=== PATIENT | female | born 1955 | race Caucasian/White ===

== ENCOUNTER 2017-03-08 09:47 | Inpatient (IN) | payer OTHER, MEDICAID, SELFPAY | END 2017-03-11 10:20 | disposition home or self-care (01) | DRG 192 | PROVIDERS: Admitting Provider Internal Medicine Adolescent Medicine; Emergency Provider Emergency Medicine; Family Provider Family Medicine; Visit Provider Family Medicine | DX: J44.1 Chronic obstructive pulmonary disease with (acute) exacerbation (principal); J20.9 Acute bronchitis, unspecified; J44.0 Chronic obstructive pulmonary disease with (acute) lower respiratory infection | CPT/HCPCS: 36415; 71020; 80048; 80053; 82550; 82553; 83605; 84484; 85025; 87040; 87070; 87205; 87275; 87276; 93005; 93041; 94640; 94760; 96365; 96367; 96375; 99285; J1956 ==

== ENCOUNTER → 2017-04-10 09:25 | Outpatient (CLI) | payer MEDICAID, SELFPAY ==
--- NOTE | 2017-04-10 09:29 | XR_ITS ---
XR hip LT 2-3V w/pelvis HISTORY: Follow-up surgery/replacement ITS.REASON: 1 year follow up LEFT MEIR. ORDERING PHYSICIAN: Manuelito Orellana MD PATIENT AGE: 61 years COMPARISON: 05/09/2016 FINDINGS: Status post total left hip replacement without evidence of orthopedic complication. There is good alignment. There are severe osteoarthritic changes of the right hip not significant change. No fracture or dislocation. There is mild osteoarthritic change of the right SI joint inferiorly IMPRESSION: 1. Status post total left hip replacement unchanged with no acute finding. 2. Severe osteoarthritis of the right hip
== END ==
PROVIDERS: PCP Family Medicine; Visit Provider Orthopaedic Surgery
DX: Z48.89 Encounter for other specified surgical aftercare (principal); Z96.642 Presence of left artificial hip joint
CPT/HCPCS: 73502

== ENCOUNTER → 2017-04-28 14:16 | Outpatient (CLI) | payer MEDICAID, SELFPAY ==
[2017-04-28 15:06] LABS: Basophils # 0.1 K/mm3 (0-0.2); Basophils % 0.5 % (0.1-2.0); Eosinophils # 0.2 K/mm3 (0.0-0.4); Hematocrit 50.5 % (37.0-47.0); Hemoglobin 16.3 g/dL (12.2-16.2); Lymphocytes # 2.8 K/mm3 (0.7-4.5); Lymphocytes % 24.6 K/mm3 (10-50); Mean Corpuscular HGB Conc 32.3 g/dL (31.8-35.4); Mean Corpuscular Hemoglobin 30.4 pg (27.0-31.2); Mean Corpuscular Volume 94.2 fl (81-99); Mean Platelet Volume 7.3 fl (7.4-10.4); Monocytes # 0.6 K/mm3 (0.1-1.0); Monocytes % 5.7 % (1.7-9.3); Neutrophils # 7.6 K/mm3 (1.8-7.8); Neutrophils % 67.3 % (37.0-80.0); Platelet Count 331 K/mm3 (142-424); Red Blood Count 5.37 M/mm3 (4.20-5.40); Red Cell Distribution Width 14.1 % (11.5-17.5); White Blood Count 11.3 K/mm3 (4.8-10.8)
[2017-04-28 15:43] LABS: HCG Qualitative, Serum Negative (Negative)
[2017-04-28 16:00] LABS: Alanine Aminotransferase 34 U/L (12-78); Albumin Level 3.4 gm/dL (3.4-5.0); Alkaline Phosphatase 101 U/L (46-116); Bilirubin,Total 0.3 mg/dL (0.2-1.0); Creatinine,Serum 0.72 mg/dL (0.55-1.02); Estimated Glomerular Filt Rate 82 ml/min (>60); GFR (African American) 99 ML/MIN (>60)
[2017-04-28 16:12] LABS: Aspartate Amino Transferase 19 U/L (15-37); Bilirubin,Direct 0.1 mg/dL (0.0-0.2)
[2017-04-28 16:14] LABS: Blood Urea Nitrogen 8 mg/dL (7-18)
[2017-05-02 12:02] LABS: Hep B Surface Ab, Qual Non Reactive (.); Hepatitis B Surface Antigen Negative (Negative); Hepatitis C Antibody <0.1 s/co ratio (0.0-0.9)
== END ==
PROVIDERS: PCP Family Medicine; Visit Provider Dermatology Dermatopathology
DX: L40.0 Psoriasis vulgaris (principal)
CPT/HCPCS: 36415; 80076; 82565; 84520; 84703; 85025; 86480; 86706; 87340; 87380

== ENCOUNTER → 2017-05-08 09:13 | Outpatient (CLI) | payer MEDICAID, SELFPAY ==
[2017-05-09 08:15] LABS: HIV Screen 4th Generation wRfx Non Reactive (Non Reactive)
== END ==
PROVIDERS: Visit Provider Dermatology Dermatopathology
DX: Z79.899 Other long term (current) drug therapy (principal); L40.0 Psoriasis vulgaris
CPT/HCPCS: 36415; 86703; G0432

== ENCOUNTER → 2017-05-29 09:02 | Outpatient (CLI) | payer MEDICAID, SELFPAY ==
[2017-05-29 09:27] LABS: Basophils # 0.1 K/mm3 (0-0.2); Basophils % 0.6 % (0.1-2.0); Eosinophils # 0.1 K/mm3 (0.0-0.4); Eosinophils % 1.3 % (0.1-12.0); Hematocrit 51.1 % (37.0-47.0); Hemoglobin 16.1 g/dL (12.2-16.2); Lymphocytes # 2.6 K/mm3 (0.7-4.5); Mean Corpuscular HGB Conc 31.4 g/dL (31.8-35.4); Mean Corpuscular Hemoglobin 30.3 pg (27.0-31.2); Mean Corpuscular Volume 96.4 fl (81-99); Mean Platelet Volume 7.1 fl (7.4-10.4); Monocytes # 0.6 K/mm3 (0.1-1.0); Monocytes % 6.2 % (1.7-9.3); Neutrophils # 5.9 K/mm3 (1.8-7.8); Neutrophils % 63.9 % (37.0-80.0); Platelet Count 360 K/mm3 (142-424); Red Cell Distribution Width 14.1 % (11.5-17.5); White Blood Count 9.3 K/mm3 (4.8-10.8)
[2017-05-29 10:40] LABS: Alanine Aminotransferase 51 U/L (12-78); Albumin Level 3.7 gm/dL (3.4-5.0); Alkaline Phosphatase 99 U/L (46-116); Aspartate Amino Transferase 24 U/L (15-37); Bilirubin,Direct 0.1 mg/dL (0.0-0.2); Bilirubin,Total 0.2 mg/dL (0.2-1.0); Blood Urea Nitrogen 13 mg/dL (7-18); Creatinine,Serum 0.94 mg/dL (0.55-1.02); Estimated Glomerular Filt Rate 60 ml/min (>60); GFR (African American) 73 ML/MIN (>60); Total Protein,Serum 7.2 gm/dL (6.4-8.2)
[2017-05-29 10:45] LABS: HCG,Quantitative 2 mIU/mL
== END ==
PROVIDERS: Visit Provider Dermatology Dermatopathology
DX: L40.0 Psoriasis vulgaris (principal); Z79.899 Other long term (current) drug therapy
CPT/HCPCS: 36415; 80076; 82565; 84520; 84702; 85025

== ENCOUNTER → 2017-06-12 08:36 | Outpatient (CLI) | payer MEDICAID, SELFPAY ==
[2017-06-12 08:49] LABS: Basophils # 0.1 K/mm3 (0-0.2); Basophils % 0.4 % (0.1-2.0); Eosinophils # 0.2 K/mm3 (0.0-0.4); Eosinophils % 1.5 % (0.1-12.0); Hematocrit 51.3 % (37.0-47.0); Hemoglobin 16.2 g/dL (12.2-16.2); Lymphocytes # 3.1 K/mm3 (0.7-4.5); Lymphocytes % 25.2 K/mm3 (10-50); Mean Corpuscular HGB Conc 31.6 g/dL (31.8-35.4); Mean Corpuscular Hemoglobin 30.9 pg (27.0-31.2); Mean Corpuscular Volume 97.6 fl (81-99); Monocytes # 0.7 K/mm3 (0.1-1.0); Monocytes % 5.9 % (1.7-9.3); Neutrophils # 8.3 K/mm3 (1.8-7.8); Neutrophils % 67.1 % (37.0-80.0); Platelet Count 376 K/mm3 (142-424); Red Blood Count 5.26 M/mm3 (4.20-5.40); Red Cell Distribution Width 14.3 % (11.5-17.5); White Blood Count 12.4 K/mm3 (4.8-10.8)
[2017-06-12 10:28] LABS: Alanine Aminotransferase 43 U/L (12-78); Albumin Level 3.6 gm/dL (3.4-5.0); Alkaline Phosphatase 101 U/L (46-116); Bilirubin,Direct 0.1 mg/dL (0.0-0.2); Bilirubin,Total 0.3 mg/dL (0.2-1.0); Blood Urea Nitrogen 12 mg/dL (7-18); Creatinine,Serum 0.79 mg/dL (0.55-1.02); Estimated Glomerular Filt Rate 73 ml/min (>60); GFR (African American) 89 ML/MIN (>60); Total Protein,Serum 7.2 gm/dL (6.4-8.2)
[2017-06-12 10:29] LABS: Aspartate Amino Transferase 23 U/L (15-37)
== END ==
PROVIDERS: Visit Provider Dermatology Dermatopathology
DX: L40.0 Psoriasis vulgaris (principal)
CPT/HCPCS: 36415; 80076; 82565; 84520; 85025

== ENCOUNTER → 2017-07-18 08:35 | Outpatient (CLI) | payer MEDICAID, SELFPAY ==
[2017-07-18 09:23] LABS: Basophils # 0.1 K/mm3 (0-0.2); Basophils % 0.6 % (0.1-2.0); Eosinophils # 0.1 K/mm3 (0.0-0.4); Eosinophils % 1.5 % (0.1-12.0); Hematocrit 47.8 % (37.0-47.0); Hemoglobin 15.3 g/dL (12.2-16.2); Lymphocytes # 2.6 K/mm3 (0.7-4.5); Mean Corpuscular HGB Conc 32.1 g/dL (31.8-35.4); Mean Corpuscular Hemoglobin 31.3 pg (27.0-31.2); Mean Corpuscular Volume 97.5 fl (81-99); Mean Platelet Volume 7.3 fl (7.4-10.4); Monocytes # 0.6 K/mm3 (0.1-1.0); Monocytes % 6.4 % (1.7-9.3); Neutrophils # 5.4 K/mm3 (1.8-7.8); Neutrophils % 61.5 % (37.0-80.0); Platelet Count 348 K/mm3 (142-424); Red Blood Count 4.91 M/mm3 (4.20-5.40); Red Cell Distribution Width 14.4 % (11.5-17.5); White Blood Count 8.8 K/mm3 (4.8-10.8)
[2017-07-18 11:51] LABS: Alanine Aminotransferase 78 U/L (12-78); Albumin Level 3.7 gm/dL (3.4-5.0); Alkaline Phosphatase 112 U/L (46-116); Aspartate Amino Transferase 36 U/L (15-37); Bilirubin,Direct 0.1 mg/dL (0.0-0.2); Bilirubin,Indirect 0.1 mg/dL (0.0-0.9); Bilirubin,Total 0.2 mg/dL (0.2-1.0); Blood Urea Nitrogen 12 mg/dL (7-18); Creatinine,Serum 0.71 mg/dL (0.55-1.02); Estimated Glomerular Filt Rate 83 ml/min (>60); GFR (African American) 100 ML/MIN (>60); Total Protein,Serum 7.1 gm/dL (6.4-8.2)
== END ==
PROVIDERS: Visit Provider Dermatology Dermatopathology
DX: L40.0 Psoriasis vulgaris (principal); Z79.899 Other long term (current) drug therapy
CPT/HCPCS: 36415; 80076; 82565; 84520; 85025

== ENCOUNTER → 2017-09-26 09:39 | Outpatient (CLI) | payer MEDICAID, SELFPAY ==
[2017-09-26 09:59] LABS: Basophils # 0.1 K/mm3 (0-0.2); Basophils % 0.6 % (0.1-2.0); Eosinophils # 0.2 K/mm3 (0.0-0.4); Eosinophils % 2.4 % (0.1-12.0); Hematocrit 51.5 % (37.0-47.0); Hemoglobin 15.7 g/dL (12.2-16.2); Lymphocytes # 2.6 K/mm3 (0.7-4.5); Mean Corpuscular HGB Conc 30.5 g/dL (31.8-35.4); Mean Corpuscular Hemoglobin 30.1 pg (27.0-31.2); Mean Corpuscular Volume 98.6 fl (81-99); Mean Platelet Volume 6.9 fl (7.4-10.4); Monocytes # 0.5 K/mm3 (0.1-1.0); Monocytes % 5.8 % (1.7-9.3); Neutrophils # 4.4 K/mm3 (1.8-7.8); Neutrophils % 57.2 % (37.0-80.0); Platelet Count 357 K/mm3 (142-424); Red Blood Count 5.22 M/mm3 (4.20-5.40); Red Cell Distribution Width 13.9 % (11.5-17.5); White Blood Count 7.8 K/mm3 (4.8-10.8)
[2017-09-26 10:51] LABS: Alanine Aminotransferase 83 U/L (12-78); Albumin Level 3.6 gm/dL (3.4-5.0); Alkaline Phosphatase 109 U/L (46-116); Aspartate Amino Transferase 49 U/L (15-37); Bilirubin,Direct 0.1 mg/dL (0.0-0.2); Bilirubin,Indirect 0.3 mg/dL (0.0-0.9); Bilirubin,Total 0.4 mg/dL (0.2-1.0); Blood Urea Nitrogen 15 mg/dL (7-18); Creatinine,Serum 0.87 mg/dL (0.55-1.02); Estimated Glomerular Filt Rate 66 ml/min (>60); GFR (African American) 79 ML/MIN (>60)
== END ==
PROVIDERS: Visit Provider Dermatology Dermatopathology
DX: Z79.899 Other long term (current) drug therapy (principal); L40.0 Psoriasis vulgaris
CPT/HCPCS: 36415; 80076; 82565; 84520; 85025

== ENCOUNTER → 2017-11-21 08:57 | Outpatient (CLI) | payer OTHER, SELFPAY ==
--- NOTE | 2017-11-21 09:04 | XR_ITS ---
XR hip RT 2-3V w/pelvis HISTORY: Hip pain, osteoarthritis ITS.REASON: osteoarthritis of right hip ORDERING PHYSICIAN: Manuelito Orellana MD PATIENT AGE: 62 years COMPARISON: 04/10/2017 FINDINGS: There are severe osteoarthritic changes of the right hip with loss of joint space superiorly with osteosclerosis and osteophyte formation. No fracture or dislocation. Sclerotic changes are present involving the right SI joint inferiorly. IMPRESSION: Severe osteoarthritis of the right hip not significantly changed
--- NOTE | 2017-11-21 09:04 | XR_ITS ---
XR hip LT 2-3V w/pelvis HISTORY: Follow-up total hip prosthesis ITS.REASON: lt MEIR sx 02/20/16 ORDERING PHYSICIAN: Manuelito Orellana MD PATIENT AGE: 62 years COMPARISON: 04/10/2017 FINDINGS: Total left hip prosthesis is present in good position. No evidence of dislocation or other complications. There are severe osteoarthritic changes noted of the right hip. Mild sclerosis of the right SI joint inferiorly. IMPRESSION: Status post total left hip prosthesis without evidence of complication Osteoarthritis of the right hip
== END ==
PROVIDERS: PCP Family Medicine; Visit Provider Orthopaedic Surgery
DX: Z96.642 Presence of left artificial hip joint (principal); M16.11 Unilateral primary osteoarthritis, right hip
CPT/HCPCS: 73502

== ENCOUNTER → 2017-12-01 11:14 | Outpatient (CLI) | payer OTHER, SELFPAY ==
[2017-12-01 11:42] LABS: Basophils # 0.1 K/mm3 (0-0.2); Basophils % 0.6 % (0.1-2.0); Eosinophils # 0.1 K/mm3 (0.0-0.4); Eosinophils % 1.6 % (0.1-12.0); Hematocrit 50.5 % (37.0-47.0); Lymphocytes # 2.4 K/mm3 (0.7-4.5); Lymphocytes % 25.8 K/mm3 (10-50); Mean Corpuscular HGB Conc 31.7 g/dL (31.8-35.4); Mean Corpuscular Hemoglobin 31.7 pg (27.0-31.2); Mean Platelet Volume 6.8 fl (7.4-10.4); Monocytes # 0.5 K/mm3 (0.1-1.0); Monocytes % 5.4 % (1.7-9.3); Neutrophils # 6.1 K/mm3 (1.8-7.8); Neutrophils % 66.7 % (37.0-80.0); Platelet Count 262 K/mm3 (142-424); Red Blood Count 5.05 M/mm3 (4.20-5.40); Red Cell Distribution Width 14.7 % (11.5-17.5); White Blood Count 9.2 K/mm3 (4.8-10.8)
[2017-12-01 12:28] LABS: Alanine Aminotransferase 32 U/L (12-78); Albumin Level 3.3 gm/dL (3.4-5.0); Alkaline Phosphatase 110 U/L (46-116); Aspartate Amino Transferase 15 U/L (15-37); Bilirubin,Direct 0.1 mg/dL (0.0-0.2); Bilirubin,Indirect 0.5 mg/dL (0.0-0.9); Bilirubin,Total 0.6 mg/dL (0.2-1.0); Blood Urea Nitrogen 12 mg/dL (7-18); Creatinine,Serum 0.81 mg/dL (0.55-1.02); Estimated Glomerular Filt Rate 71 ml/min (>60); GFR (African American) 86 ML/MIN (>60)
== END ==
PROVIDERS: PCP Family Medicine; Visit Provider Dermatology Dermatopathology
DX: L40.0 Psoriasis vulgaris (principal); Z79.899 Other long term (current) drug therapy
CPT/HCPCS: 36415; 80076; 82565; 84520; 85025

== ENCOUNTER → 2018-01-30 08:26 | Outpatient (CLI) | payer OTHER, SELFPAY ==
--- NOTE | 2018-01-30 09:03 | MM_ITS ---
MM Dig SC mamm unilat LT CAD Ordering Physician: Anjana Ybarra MD Patient Age: 62 years Female COMPARISON: January INDICATION: Routine screening. No hormones. No new complaints. Noncontributory family history Right mastectomy for breast cancer.. Excisional biopsy left breast more the prior reports states at this left breast biopsy was a benign finding TECHNIQUE: MLO, CC, axillary cc and MLO nipple profile views left breast FINDINGS: Lumpectomy scar at 2-3:00 evident was noted clinically on history sheet.. This corresponds with the area of breast distortion from previous lumpectomy. Is perhaps very subtle progressive density benign-appearing calcifications which likely related related to fat necrosis in this area of biopsy. No new areas or densities of concern at the left breast. I also see there is a small metallic marker from a interval percutaneous biopsy in the same region. Other benign calculations towards medial left breast stable as well. IMPRESSION: Prominent but Stable post biopsy features left breast. No new findings Follow-up in one year recommended on left BI-RADS Category: 2 Benign Finding(s) RECOMMENDED FOLLOW-UP: 1YR 1 YEAR FOLLOW-UP A letter has been sent to the patient regarding results of the study.)
== END ==
PROVIDERS: PCP Family Medicine; Visit Provider Family Medicine
DX: Z12.31 Encounter for screening mammogram for malignant neoplasm of breast (principal)
CPT/HCPCS: 77067

== ENCOUNTER → 2018-03-13 09:06 | Outpatient (CLI) | payer OTHER, SELFPAY ==
--- NOTE | 2018-03-13 09:12 | XR_ITS ---
XR chest 2V HISTORY: Smoker. Chronic lung changes. ITS.REASON: FPC MEDICATION USE for psoriasis. ORDERING PHYSICIAN: Renuka Miller PATIENT AGE: 62 years Technique: PA lateral chest COMPARISON: February 2017 and December 2016 CXR. FINDINGS: No discrete acute findings. Hyperexpansion with mild chronic lung changes.. The tenting, and mild elevation left hemidiaphragm anteriorly is again noted similar to previous studies. . Otherwise flattening of diaphragm on lateral view. The heart, ross and mediastinal structures are stable and satisfactory. Heart upper normal size. & Perhaps slightly more generous cardiac silhouette been 2017.. Pulmonary vascularity appears stable. Upper normal. No pleural effusion. No pneumothorax. Scattered small granuloma calcifications at both lungs-stable Stable right apical pleural scarring unchanged Postsurgical changes over right chest from previous mastectomy. Mild degenerative changes T-spine with likely stable very subtle wedging at approximately T6.. ------IMPRESSION stable chest. Nothing definitely acute. . Hyperexpansion with mild chronic lung changes. Right mastectomy. Heart upper normal in size Stable minor observations in text
== END ==
PROVIDERS: PCP Family Medicine; Visit Provider Nurse Practitioner
DX: L40.0 Psoriasis vulgaris (principal); Z79.899 Other long term (current) drug therapy
CPT/HCPCS: 71046

== ENCOUNTER → 2018-05-19 13:38 | Outpatient (CLI) | payer MEDICARE, SELFPAY ==
[2018-05-19 14:46] LABS: Basophils # 0.1 K/mm3 (0-0.2); Basophils % 0.7 % (0.1-2.0); Eosinophils # 0.2 K/mm3 (0.0-0.4); Eosinophils % 1.5 % (0.1-12.0); Hematocrit 52.4 % (37.0-47.0); Hemoglobin 17.1 g/dL (12.2-16.2); Lymphocytes # 3.8 K/mm3 (0.7-4.5); Lymphocytes % 34.5 % (10-50); Mean Corpuscular HGB Conc 32.6 g/dL (31.8-35.4); Mean Corpuscular Hemoglobin 31.4 pg (27.0-31.2); Mean Corpuscular Volume 96.5 fl (81-99); Mean Platelet Volume 6.9 fl (7.4-10.4); Monocytes # 0.8 K/mm3 (0.1-1.0); Monocytes % 7.4 % (1.7-9.3); Neutrophils # 6.2 K/mm3 (1.8-7.8); Neutrophils % 55.9 % (37.0-80.0); Platelet Count 345 K/mm3 (142-424); Red Blood Count 5.43 M/mm3 (4.20-5.40); Red Cell Distribution Width 13.1 % (11.5-17.5); White Blood Count 11.1 K/mm3 (4.8-10.8)
[2018-05-19 15:54] LABS: Alanine Aminotransferase 28 U/L (12-78); Albumin Level 3.7 gm/dL (3.4-5.0); Alkaline Phosphatase 113 U/L (46-116); Aspartate Amino Transferase 15 U/L (15-37); Bilirubin,Direct 0.1 mg/dL (0.0-0.2); Bilirubin,Indirect 0.2 mg/dL (0.0-0.9); Bilirubin,Total 0.3 mg/dL (0.2-1.0); Total Protein,Serum 7.2 gm/dL (6.4-8.2)
[2018-05-23 10:07] LABS: Hep B Surface Ab, Qual Reactive (.); Hepatitis B Surface Antigen Negative (Negative)
[2018-05-23 10:13] LABS: QuantiFERON-TB Gold Plus Negative (Negative)
== END ==
PROVIDERS: PCP Family Medicine; Visit Provider Dermatology Dermatopathology
DX: L40.0 Psoriasis vulgaris (principal); Z79.899 Other long term (current) drug therapy
CPT/HCPCS: 36415; 80076; 85025; 86480; 86706; 87340

== ENCOUNTER → 2018-08-17 12:46 | Outpatient (CLI) | payer MEDICARE, OTHER, SELFPAY ==
--- NOTE | 2018-08-17 12:51 | CA_ITS ---
PROCEDURE: 2-D M-mode and color Doppler study INDICATIONS FOR THE TEST: Chest pain COPD Heart Murmur Tobacco Smoking+ Palpitations Fatigue Syncope Edema+ Hypertension Diabetes Mellitus Rheumatic Fever SOB WATERS Obesity Hyperlipidemia Family History HD Additional History PATIENT INFORMATION HEIGHT: 62 WEIGHT:170 GENDER: Female B/P:144/71 2-D/M-MODE INTERPRETATION: 2-D MEASUREMENTS OBSERVED VALUES IN CMS Right Ventricular Dimension (RVDd) 2.2 Interventricular Septum (Thickness)(IVsd) 1.6 Left Ventricular Internal Dimensions(LVIDd) 5.1 Left Ventricular Posterior Wall (Thickness)(LVPWd) 0.9 Aortic Root 3.0 Aortic Cusp Separation 1.7 Left Atrial Dimensions (LAD) 3.1 2D 1. Technically very difficult and poor study, endocardial surfaces as well as the valvular structures are poorly visualized, repeat study with Definity contrast is recommended. 2. Left atrium is mildly enlarged, left ventricle is mildly dilated, severely reduced left ventricular systolic function, visually estimated ejection fraction 30%, left ventricle is globally hypokinetic. 3. The right atrium and right ventricle are normal size and contractility. 4. The aortic valve is poorly visualized. 5. The mitral and tricuspid valvular grossly normal. 6. The pulmonic valve is poorly visualized 7. No significant pericardial effusion noted. DOPPLER INTERROGATION: Doppler interrogation of the aortic, mitral and tricuspid valvular presence of mild mitral and tricuspid regurgitation, tricuspid regurgitation jet velocity is inadequate for acquisition of the right ventricular systolic pressure, diastolic parameters are inconclusive CONCLUSION: 1. Technically difficult and poor study, as described above, repeat study with Definity contrast is recommended. 2. Mildly enlarged left atrium, mildly dilated left ventricle, severely reduced left ventricular systolic function, visually estimated ejection fraction 30%, left ventricle is globally hypokinetic. Diastolic parameters are inconclusive. 3. The aortic valve is poorly visualized, the aortic outflow Doppler is not suggestive of significant aortic stenosis aortic insufficiency. 4. Mild mitral and tricuspid regurgitation 5. No significant pericardial effusion noted.
== END ==
PROVIDERS: PCP Family Medicine; Visit Provider Nurse Practitioner
DX: R60.1 Generalized edema (principal)
CPT/HCPCS: 93306

== ENCOUNTER → 2018-08-28 09:59 | Outpatient (CLI) | payer MEDICARE, OTHER, SELFPAY ==
[2018-08-28 11:23] LABS: Anion Gap 13.3 mEq/L (5-15); Blood Urea Nitrogen 16 mg/dL (7-18); Calcium 9.3 mg/dL (8.5-10.1); Carbon Dioxide 28 mmol/L (21.0-32.0); Chloride 105 mmol/L (98-107); Creatinine,Serum 0.91 mg/dL (0.55-1.02); Estimated Glomerular Filt Rate 62 ml/min (>60); GFR (African American) 75 ML/MIN (>60); Glucose 94 mg/dL (74-106); Sodium 141 mmol/L (136-145)
[2018-08-28 11:32] LABS: Potassium 5.3 mmoL/L (3.5-5.1)
== END ==
PROVIDERS: Visit Provider Internal Medicine Cardiovascular Disease
DX: F17.200 Nicotine dependence, unspecified, uncomplicated (principal); I42.9 Cardiomyopathy, unspecified; J44.9 Chronic obstructive pulmonary disease, unspecified; R00.0 Tachycardia, unspecified; R06.09 Other forms of dyspnea; R60.9 Edema, unspecified; R93.1 Abnormal findings on diagnostic imaging of heart and coronary circulation
CPT/HCPCS: 36415; 80048; 83880

== ENCOUNTER → 2018-09-01 15:11 | Outpatient (CLI) | payer MEDICARE, OTHER, SELFPAY ==
[2018-09-01 18:46] LABS: Anion Gap 12.5 mEq/L (5-15); Blood Urea Nitrogen 15 mg/dL (7-18); Calcium 9.1 mg/dL (8.5-10.1); Carbon Dioxide 28 mmol/L (21.0-32.0); Chloride 108 mmol/L (98-107); Creatinine,Serum 0.81 mg/dL (0.55-1.02); Estimated Glomerular Filt Rate 71 ml/min (>60); GFR (African American) 86 ML/MIN (>60); Glucose 122 mg/dL (74-106); Potassium 4.5 mmoL/L (3.5-5.1); Sodium 144 mmol/L (136-145)
== END ==
PROVIDERS: Physician Assistant; Visit Provider Internal Medicine Cardiovascular Disease
DX: E87.5 Hyperkalemia (principal); R06.00 Dyspnea, unspecified
CPT/HCPCS: 36415; 80048

== ENCOUNTER → 2018-09-02 11:07 | Outpatient (CLI) | payer MEDICARE, OTHER, SELFPAY ==
--- NOTE | 2018-09-02 11:10 | NM_ITS ---
CARDIOLITE SPECT MYOCARDIAL PERFUSION LEXISCAN, REST AND STRESS: History: Shortness of breath, fatigue, tobacco use, family history Procedure: Patient received a 0.4 mg of intravenous Lexiscan, resting heart rate was 80 bpm resting blood pressure 129/60, with Lexiscan maximum heart rate achieved was 118 bpm which is less than 85% of the maximum predicted heart rate and a blood pressure was 131/77. With Lexiscan patient complained of shortness of breath. Electrocardiogram: Resting electrocardiogram showed sinus rhythm, with Lexiscan less than 1.[address] segment depression noted from the baseline EKG. The EKG portion of the Lexiscan Myoview is nondiagnostic. Cardiac stress and resting SPECT images: Cardiac stress and resting SPECT images were obtained using technetium 99 Myoview 32.1 mCi stress and 10.4 mCi at rest. Gated SPECT further analysis of segmental wall motion and calculation of the ejection fraction also done. Cardiac stress and the suspect images show reversible ischemia involving the anterolateral lateral and inferior wall, computer derived ejection fraction is 41% with anterolateral wall in the inferior wall moderate hypokinesis right ventricle is normal size and contractility. Conclusion: 1. The EKG portion of the Lexiscan Myoview is nondiagnostic. 2. Scintigraphic evidence of reversible ischemia involving the anterolateral, lateral and inferior wall suggestive of multivessel coronary artery disease. Computer derived ejection fraction is 41% with segmental wall motion abnormality described above, right ventricle is normal size and contractility. 3. Abnormal Lexiscan Myoview study.
--- NOTE | 2018-09-02 14:13 | CT_ITS ---
CT chest wo con HISTORY: Shortness of breath ITS.REASON: dyspnea ORDERING PHYSICIAN: Marko Nicole MD PATIENT AGE: 63 years COMPARISON: None Technique: Axial images were obtained. Sagittal, and coronal reformatted images are also generated and reviewed. All CT scans at the facility use one or more dose reduction, viz: automated exposure control, ma/kV adjustment per patient size (including targeted exams where dose is matched to indication, i.e. head), or iterative reconstruction technique. FINDINGS: No mediastinal or hilar mass or adenopathy. There are coronary artery calcifications. There is centrilobular emphysema with changes of COPD. There is evidence of old granulomatous disease. There has been a prior right mastectomy. No suspicious lung lesions are evident. No effusions or infiltrates. There are postsurgical changes with scattered areas of calcification in the left breast. No acute bony anomalies. Upper abdominal images are unremarkable. IMPRESSION: COPD with centrilobular emphysema. No acute findings
--- NOTE | 2018-09-02 14:29 | HMH.ITSHM ---
Current Home Medications as stated by this patient Violette Rios or traffic workforce representative. []celecoxil incruse furosemide losartan carvedilol embrel
== END ==
PROVIDERS: PCP Family Medicine; Visit Provider Internal Medicine Cardiovascular Disease
DX: F17.200 Nicotine dependence, unspecified, uncomplicated (principal); I42.9 Cardiomyopathy, unspecified; J44.9 Chronic obstructive pulmonary disease, unspecified; R00.0 Tachycardia, unspecified; R06.09 Other forms of dyspnea; R60.9 Edema, unspecified; R93.1 Abnormal findings on diagnostic imaging of heart and coronary circulation
CPT/HCPCS: 71250; 78452; 93017; A9502; J2785

== ENCOUNTER → 2018-10-09 09:29 | Outpatient (CLI) | payer MEDICARE, OTHER, SELFPAY ==
[2018-10-09 09:49] LABS: Basophils # 0.1 K/mm3 (0-0.2); Basophils % 0.6 % (0.1-2.0); Eosinophils # 0.1 K/mm3 (0.0-0.4); Eosinophils % 0.8 % (0.1-12.0); Hematocrit 48.2 % (37.0-47.0); Hemoglobin 15.2 g/dL (12.2-16.2); Lymphocytes # 2.5 K/mm3 (0.7-4.5); Mean Corpuscular HGB Conc 31.5 g/dL (31.8-35.4); Mean Corpuscular Hemoglobin 29.6 pg (27.0-31.2); Mean Corpuscular Volume 94.1 fl (81-99); Mean Platelet Volume 7.2 fl (7.4-10.4); Monocytes # 0.6 K/mm3 (0.1-1.0); Monocytes % 6.5 % (1.7-9.3); Neutrophils % 65.1 % (37.0-80.0); Platelet Count 321 K/mm3 (142-424); Red Blood Count 5.12 M/mm3 (4.20-5.40); Red Cell Distribution Width 13.1 % (11.5-17.5); White Blood Count 9.2 K/mm3 (4.8-10.8)
[2018-10-09 11:48] LABS: Anion Gap 11.6 mEq/L (5-15); Blood Urea Nitrogen 11 mg/dL (7-18); Carbon Dioxide 28 mmol/L (21.0-32.0); Chloride 106 mmol/L (98-107); Creatinine,Serum 0.85 mg/dL (0.55-1.02); Estimated Glomerular Filt Rate 67 ml/min (>60); GFR (African American) 81 ML/MIN (>60); Glucose 107 mg/dL (74-106); Potassium 4.6 mmoL/L (3.5-5.1); Sodium 141 mmol/L (136-145)
== END ==
PROVIDERS: Visit Provider Internal Medicine
DX: Z95.5 Presence of coronary angioplasty implant and graft (principal); L40.0 Psoriasis vulgaris; Z79.899 Other long term (current) drug therapy
CPT/HCPCS: 36415; 80048; 85025

== ENCOUNTER 2018-10-15 08:15 | Outpatient (RCR) | payer MEDICARE, OTHER, SELFPAY | END 2018-12-07 13:53 | disposition home or self-care (01) | LOC: PT 08:15 | PROVIDERS: Visit Provider Internal Medicine | DX: Z95.5 Presence of coronary angioplasty implant and graft (principal) | CPT/HCPCS: 93798 ==

== ENCOUNTER → 2018-10-26 09:43 | Outpatient (CLI) | payer MEDICARE, OTHER, SELFPAY ==
--- NOTE | 2018-10-26 09:49 | XR_ITS ---
XR hip RT 2-3V w/pelvis HISTORY: ITS.REASON: right hip pain ORDERING PHYSICIAN: Manuelito Orellana MD PATIENT AGE: 63 years COMPARISON: 11/21/2017 FINDINGS: There are severe osteoarthritic changes of the right hip with loss of joint space superiorly with obvious sclerosis and osteophyte formation. There is some minimal flattening of the femoral head. No acute fracture or dislocation is evident. Status post total hip prosthesis placement on the left with good alignment. There is sclerosis of the right SI joint inferiorly. IMPRESSION: Severe osteoarthritis of the right hip
== END ==
PROVIDERS: PCP Family Medicine; Visit Provider Orthopaedic Surgery
DX: M25.551 Pain in right hip (principal)
CPT/HCPCS: 73502

== ENCOUNTER → 2018-12-17 09:49 | Outpatient (CLI) | payer MEDICARE, OTHER, SELFPAY ==
--- NOTE | 2018-12-17 09:51 | CA_ITS ---
APPROVED REPORT EXAM: Limited 2D Echocardiogram Funeral Service Apprentice: Honey Turner CRT Ht: 5 ft 1 in Wt: 173lbs BSA: 1.78 BP: 104/55 mmHg Indications: SOB, CAD, CM, Stent, repeat echo w/definity. Echo Enhancing Agent Indication: Endocardial border delineation Agent(s) / Amount(s) Used: Definity 2 cc Left Ventricle Left atrium is mildly enlarged, left ventricle is mildly dilated, there is mild concentric left ventricular hypertrophy, visually estimated ejection fraction of 30%, left ventricle is globally hypokinetic, definitely contrast was utilized to delineate the endocardial surfaces, there is no left ventricular thrombus seen. Right Ventricle Right atrium and right ventricular normal size and contractility. Aortic Valve Aortic valve is minimally thickened and fibrosed. Mitral Valve Mitral valve is grossly normal. Tricuspid Valve Tricuspid valve is grossly normal. Pulmonic Valve Pulmonic valve is poorly visualized. Great Vessels Aortic root is normal size. Pericardium No significant pericardial effusion noted. Conclusion 1. Limited study performed, Definity contrast was utilized to delineate the endocardial surfaces. No spectral or color flow Doppler performed. 2. Mildly enlarged left atrium, mildly dilated left ventricle, mild concentric left ventricular hypertrophy, visually estimated ejection fraction 30% left ventricle is globally hypokinetic. 3. No significant pericardial effusion noted. Electronically signed by : Marko Nicole, 12/18/2018 14:04:11
== END ==
PROVIDERS: PCP Family Medicine; Visit Provider Internal Medicine Cardiovascular Disease
DX: L40.0 Psoriasis vulgaris (principal); Z79.899 Other long term (current) drug therapy
CPT/HCPCS: 93306; 93308; Q9957

== ENCOUNTER → 2019-02-24 09:01 | Outpatient (CLI) | payer MEDICARE, OTHER, SELFPAY ==
--- NOTE | 2019-02-24 10:00 | MM_ITS ---
PROCEDURE: MM DIG SC MAMM UNILAT LT CAD Patient Age:63Y CLINICAL INDICATION: SCREENING right mastectomy. Previous malignant lumpectomy biopsy with subsequent percutaneous biopsy of area of scarring left breast but no hormones . No new complaints COMPARISON: [facility] MAMM DIAG UNILAT DIG PNL from 11/27/2010 [facility] DIG MAMM-SCREENING UNI-LT from 06/04/2013 [facility] DIG MAMM-SCREENING UNI-LT from 12/05/2014 [facility] DIG MAMM-SCREENING UNI-LT from 12/21/2015 [facility] DIG MAMM-SCREEN UNI-LT W/CAD from 01/24/2017 [facility] MM Dig SC mamm unilat LT CAD from 01/30/2018 TECHNIQUE: Standard CC and MLO images were obtained of left breast remaining. R2 CAD reviewed. Additional axillary CC view included left breast FINDINGS: Note from technologist: Apparently the patient was very tender and could not tolerate stated compression Right mastectomy. Only the left breast imaged Left mammogram: Previous malignant lumpectomy scar at upper-outer quadrant left breast. Small metallic marker at its lateral aspect reflects subsequent percutaneous biopsy of area of scarring and calcification but however there has been no significant change since previous studies. Stable area of architectural distortion and scarring. Skin retraction overlying this area. Multiple dense calcifications most compatible with post biopsy calcifications and fat necrosis IMPRESSION: Left mammogram: Prominent but stable post lumpectomy scarring upper outer quadrant. No significant new findings Follow-up left mammogram 1 year recommended BI-RAD Category: 2 Benign Finding(s) FOLLOW-UP: 1YR 1 Year Follow-up (A letter has been sent to the patient regarding results of the study.) Dictated by: Carlos Solis MD 03/03/2019 15:06 Electronically signed by Carlos Solis MD in [place] 03/03/2019 15:06
== END ==
PROVIDERS: PCP Family Medicine; Visit Provider Family Medicine
DX: Z12.31 Encounter for screening mammogram for malignant neoplasm of breast (principal)
CPT/HCPCS: 77067

== ENCOUNTER → 2019-03-03 08:46 | Outpatient (CLI) | payer MEDICARE, OTHER, SELFPAY ==
[2019-03-03 10:24] LABS: Anion Gap 13.3 mEq/L (5-15); Blood Urea Nitrogen 15 mg/dL (7-18); Calcium 8.9 mg/dL (8.5-10.1); Carbon Dioxide 30 mmol/L (21.0-32.0); Chloride 102 mmol/L (98-107); Creatinine,Serum 0.82 mg/dL (0.55-1.02); Estimated Glomerular Filt Rate 70 ml/min (>60); GFR (African American) 85 ML/MIN (>60); Glucose 115 mg/dL (74-106); Potassium 5.3 mmoL/L (3.5-5.1); Sodium 140 mmol/L (136-145)
== END ==
PROVIDERS: Urology; Visit Provider Internal Medicine Cardiovascular Disease
DX: I25.10 Atherosclerotic heart disease of native coronary artery without angina pectoris (principal); Z79.899 Other long term (current) drug therapy; L40.0 Psoriasis vulgaris
CPT/HCPCS: 36415; 80048

== ENCOUNTER → 2019-03-12 10:06 | Outpatient (CLI) | payer MEDICARE, OTHER, SELFPAY ==
[2019-03-12 11:46] LABS: Anion Gap 15.2 mEq/L (5-15); Blood Urea Nitrogen 14 mg/dL (7-18); Calcium 8.6 mg/dL (8.5-10.1); Carbon Dioxide 26 mmol/L (21.0-32.0); Chloride 107 mmol/L (98-107); Creatinine,Serum 0.81 mg/dL (0.55-1.02); Estimated Glomerular Filt Rate 71 ml/min (>60); GFR (African American) 86 ML/MIN (>60); Glucose 87 mg/dL (74-106); Potassium 4.2 mmoL/L (3.5-5.1); Sodium 144 mmol/L (136-145)
== END ==
PROVIDERS: Visit Provider Internal Medicine Cardiovascular Disease
DX: R06.02 Shortness of breath (principal); I11.9 Hypertensive heart disease without heart failure; I25.10 Atherosclerotic heart disease of native coronary artery without angina pectoris; I25.5 Ischemic cardiomyopathy
CPT/HCPCS: 36415; 80048; 83880

== ENCOUNTER → 2019-03-15 12:23 | Outpatient (CLI) | payer MEDICARE, OTHER, SELFPAY ==
--- NOTE | 2019-03-15 12:23 | NM_ITS ---
APPROVED REPORT NM Technologist: ZEB Cherry, RT (R)(N) Indication Dyspnea Cardiac Disease: CAD Cardiomyopathy Pretest Chest Pain No chest Pain Procedure The above named patient was injected with 25.6 mCi of Tc99m tagged red blood cells. Gated imaging was then performed in Right and left anterior oblique and Ant projections. Findings Calculated LV Ejection Fraction is 49.0%. Impression 1. The resting MUGA scan shows left ventricular ejection fraction of 49%. Conclusion 1. The resting MUGA scan shows left ventricular ejection fraction of 49%. Electronically signed by : Marko Nicole, 03/19/2019 12:18:13
--- NOTE | 2019-03-15 13:26 | HMH.ITSHM ---
Current Home Medications as stated by this patient Violette Rios or pharmacy sales representative. []UMECLIDINIUM TICAGRELOR METOPROLOL LOSARTAN FUROSEMIDE FLUTICASONE ETANERCEPT CELECOXIB ATORVASTATIN ASA
== END ==
PROVIDERS: PCP Family Medicine; Visit Provider Internal Medicine Cardiovascular Disease
DX: I25.10 Atherosclerotic heart disease of native coronary artery without angina pectoris (principal); I25.5 Ischemic cardiomyopathy; R06.02 Shortness of breath
CPT/HCPCS: 78473; A9512; A9560

== ENCOUNTER → 2019-08-09 10:47 | Outpatient (CLI) | payer MEDICARE, OTHER, SELFPAY ==
[2019-08-09 13:15] LABS: Chloride 102 mmol/L (98-107); Potassium 4.6 mmoL/L (3.5-5.1); Sodium 138 mmol/L (136-145)
[2019-08-09 13:18] LABS: Anion Gap 13.6 mEq/L (5-15); Blood Urea Nitrogen 16 mg/dl (7-17); Carbon Dioxide 27 mmol/L (22.0-30.0); Estimated Glomerular Filt Rate 63 ml/min (>60); GFR (African American) 76 ML/MIN (>60); Glucose 111 mg/dl (74-100)
[2019-08-09 13:27] LABS: NT Pro Brain Natriuretic Pep. 71.4 pg/mL (0-125)
== END ==
PROVIDERS: Visit Provider Nurse Practitioner Family
DX: I42.9 Cardiomyopathy, unspecified (principal); R06.02 Shortness of breath
CPT/HCPCS: 36415; 80048; 83880

== ENCOUNTER → 2019-08-13 10:31 | Outpatient (CLI) | payer MEDICARE, OTHER, SELFPAY ==
--- NOTE | 2019-08-13 10:32 | CA_ITS ---
APPROVED REPORT EXAM: Comprehensive 2D, Doppler, and color-flow Echocardiogram Player Manager: Krissy Donnelly RDCS Ht: 5 ft 0 in Wt: 180lbs BSA: 1.78 BP: 105/63 mmHg Indications: CAD,SOA,COPD 2D Dimensions LVOT 1.62 cm (M/F) 1.5-2.5 M-Mode Dimensions RVDd 2.05 cm (0.9-2.6) LVDd 5.68 cm (3.5-5.7) LVDs 4.94 cm (3.5-5.7) IVSd 0.80 cm (0.6-1.1) PWd 0.68 cm (0.6-1.1) EF (Teich) 27.60% FS 13.00% EDV (Teich) 158.80 mL ESV (Teich) 115.00 mL LV Diastology E/A Ratio 0.55 Mitral Valve MV A Velocity 76.00 (40-130 cm/s) Left Ventricle Left atrium is mildly enlarged, left ventricle is normal size, mild qualitative concentric left ventricular hypertrophy, visually estimated ejection fraction 50% with no regional wall motion abnormality, endocardial surfaces are poorly visualized, grade 1 diastolic dysfunction seen without tissue Doppler evidence of raise left atrial pressure. Right Ventricle Right atrium and right ventricle mildly enlarged with normal contractility. Aortic Valve Aortic valve is minimally thickened and fibrosed. There is no aortic stenosis aortic insufficiency. Mitral Valve Mitral valve is grossly normal, there is mild mitral regurgitation. Tricuspid Valve Tricuspid valve is grossly normal, there is mild tricuspid regurgitation, tricuspid regurgitation jet velocity is inadequate for calculation of the right ventricular systolic pressure. Pulmonic Valve Pulmonic valve is poorly visualized. Great Vessels Aortic root is normal size. Pericardium No significant pericardial effusion noted. Conclusion 1. Technically difficult study because of the patient fact in poor acoustic windows 2. Normal left ventricular size, visually estimated ejection fraction 50% with no regional wall motion abnormality, endocardial surfaces are poorly visualized. Grade 1 diastolic dysfunction seen without tissue Doppler evidence of raise left atrial pressure. 3. Qualitatively mildly enlarged right ventricle with normal contractility 4. No significant pericardial effusion noted. Electronically signed by : Marko Nicole, 08/13/2019 12:02:10
--- NOTE | 2019-08-13 11:03 | NM_ITS ---
APPROVED REPORT Exam: Nuclear Stress Test Indication: CAD, 2 STENTS, HTN, OBESITY, TOB USE, FM HX., SOB, PALPITATIONS, SYNCOPE, FATIGUE., EDEMA Patient Location: Outpatient Stress Tech: Kiley Gray NE Tech:Brenda Reyes, ARRT RT(R)(N) Ht: 5 ft 3 in Wt: 180 lbs Bra Size: 36B HR: 96 bpm BP: 104/44 mmHg BSA: 1.85 m2 BMI: 31.8 History: CAD, 2 STENTS, HTN, OBESITY, TOB USE, FM HX., SOB, PALPITATIONS, SYNCOPE, FATIGUE., EDEMA Procedure: Patient received a 0.4 mg of intravenous Lexiscan, resting heart rate 96 bpm, resting blood pressure 104/44 mmHg, with Lexiscan maximum heart rate achived was 116 bpm which is Less than 85% % of the maximum predicted heart rate and blood pressure was 116/58 mmHg. With Lexiscan, patient denied any complaint of chest pain. Electrocardiogram Resting electrocardiogram showed sinus rhythm, with Lexiscan there is less than 1.[address] segment depression noted from the baseline EKG. The EKG portion of the Lexiscan Myoview is nondiagnostic. Cardiac Stress and Resting SPECT Images: Cardiac Stress and Resting SPECT images were obtained using technetium 99m Myoview 32.1 mCi stress and 10.98 mCi at rest. Gated SPECT for analysis of segmental wall motion and calculation of the ejection fraction also done. Cardiac stress and resting SPECT images show a mild fixed defect involving the distal anterior apical and apical wall and a fixed pattern consistent with area of nontransmural myocardial scarring without significant mary alice-infarct ischemia. Computer derived ejection fraction is 53% with mild anterior apical wall hypokinesis. Right ventricle is normal size and contractility. Conclusion: 1. The EKG portion of the Lexiscan Myoview is nondiagnostic. 2. Scintigraphic evidence of nontransmural myocardial scarring involving the distal anterior apical, apical wall. There is no significant mary alice-infarct ischemia. Computer derived ejection fraction 53% with mild distal anterior and apical wall hypokinesis. Right ventricle is normal size and contractility. 3. Abnormal Lexiscan Myoview study. Electronically signed by : Marko Nicole, 08/13/2019 14:00:42
--- NOTE | 2019-08-13 12:30 | CA_ITS ---
APPROVED REPORT Exam: Pharmacologic Technologist: Kiley Gray, Ht: 5 ft 3 in Wt: 180 lbs BSA: 1.85 m2 Indications: SOA/Edema/ Medical History Medical History: HTN Medications: Umeclidinium, tramadol,spironolactine,metoprolol, losartan, furosemide, fluticasone, etanercept,clopidogrel,celecoxid, atorvastatin,aspirin Cardiac Risk Factors: HTN, FHX of CAD, Smoking Stress Test Details Test: LEXISCAN Reason for pharmacologic stress test: physical limitation. HR Resting HR: 96 bpm Max Heart Rate (APMHR): 154 bpm Max HR Achieved: 118 bpm Target HR (85% APMHR): 130 bpm % of APMHR: 76 BP Resting BP: 104/44 mmHg Max BP: 119/62 mmHg ECG Clinical Exercise duration: 04:00 min Highest Stage Achieved: Stress ECG Conclusion no CP, positive for SOA at peak infusion resolving in recovery no ectopy less than 1.5mm ST depression images to follow Test Summary REST 02:29 . . 96 . 104/ 44 . . Stage 1 . . . . . . . Myoview Injected Stage 1 01:00 . . 118 . . . . Stage 2 01:00 . . 114 . 114/ 58 . . Stage 3 01:00 . . 113 . 105/ 51 . . Stage 4 01:00 . . 108 . 107/ 48 . Stop exercise at 04:00 RECOVERY 01:00 . . 97 . 102/ 53 . . RECOVERY 02:00 . . 102 . 119/ 62 . . RECOVERY 03:00 . . 109 . 116/ 59 . . RECOVERY 04:00 . . 105 . 104/ 56 . . RECOVERY 04:01 . . 105 . 104/ 56 . . Electronically signed by : Marko Nicole, 08/13/2019 13:55:58
== END ==
PROVIDERS: PCP Family Medicine; Visit Provider Urology
DX: E78.2 Mixed hyperlipidemia (principal); F17.200 Nicotine dependence, unspecified, uncomplicated; I11.9 Hypertensive heart disease without heart failure; I25.10 Atherosclerotic heart disease of native coronary artery without angina pectoris; I25.5 Ischemic cardiomyopathy; J44.9 Chronic obstructive pulmonary disease, unspecified; R00.0 Tachycardia, unspecified; R06.02 Shortness of breath; R60.0 Localized edema; Z01.810 Encounter for preprocedural cardiovascular examination
CPT/HCPCS: 78452; 93017; 93306; A9502; J2785

== ENCOUNTER 2019-08-23 08:34 | Day surgery (SDC) | payer MEDICARE, OTHER, SELFPAY ==
[2019-08-23] VITALS (10 sets, daily range): BP systolic 97–136; BP diastolic 56–79; PULSE 91–108; RESP 15–18; TEMP 36.6; O2SAT 90–98; BMI 35.7
[2019-08-23 09:17] LABS: Basophils # 0.1 K/mm3 (0-0.2); Basophils % 0.7 % (0.1-2.0); Eosinophils # 0.2 K/mm3 (0.0-0.4); Eosinophils % 1.9 % (0.1-12.0); Hemoglobin 15.2 g/dL (12.2-16.2); Lymphocytes % 29.7 % (10-50); Mean Corpuscular HGB Conc 32.4 g/dL (31.8-35.4); Mean Corpuscular Hemoglobin 30.8 pg (27.0-31.2); Mean Corpuscular Volume 94.9 fl (81-99); Mean Platelet Volume 7.2 fl (7.4-10.4); Monocytes # 0.6 K/mm3 (0.1-1.0); Monocytes % 6.3 % (1.7-9.3); Neutrophils # 6.1 K/mm3 (1.8-7.8); Neutrophils % 61.5 % (37.0-80.0); Platelet Count 348 K/mm3 (142-424); Red Blood Count 4.96 M/mm3 (4.20-5.40); White Blood Count 9.9 K/mm3 (4.8-10.8)
[2019-08-23 09:26] LABS: Chloride 105 mmol/L (98-107); Sodium 140 mmol/L (136-145)
[2019-08-23 09:27] LABS: Potassium 4.1 mmoL/L (3.5-5.1)
[2019-08-23 09:29] LABS: Blood Urea Nitrogen 14 mg/dl (7-17); Creatinine Clearance Estimated 73 mL/min (50-200); Estimated Glomerular Filt Rate 63 ml/min (>60); GFR (African American) 76 ML/MIN (>60)
[2019-08-23 09:30] LABS: Anion Gap 10.1 mEq/L (5-15); Calcium 9.3 mg/dl (8.4-10.2); Carbon Dioxide 29 mmol/L (22.0-30.0); Glucose 125 mg/dl (74-100)
--- NOTE | 2019-08-23 10:45 | IR_ITS ---
APPROVED REPORT Patient Location: Outpatient PROCEDURES Left heart catheterization Left ventriculogram Selective coronary angiogram INDICATION High risk abnormal Myoview, Previous myocardial infarction, Known coronary artery disease, History of coronary artery stenting Informed consent was obtained prior to the procedure. COMPLICATIONS NONE Estimated Blood Loss: LESS THAN 10 ML TECHNIQUE One percent lidocaine used to anesthetize the right anterior aspect of the wrist. The right radial artery was accessed via the Seldinger technique. A 6 Wallisian sheath was placed in the right radial artery. 2.5 mg of verapamil, 800 mcg of nitroglycerin, 1mg Lidocaine and 5000 U Heparin were given through the arterial sheath. The trap catheter and 6 Wallisian JL 3 catheter were also used to perform left heart catheterization, left ventriculogram and selective coronary angiogram. At the end of the procedure the sheath was removed good hemostasis was achieved using Traclet band, patient was transferred to the postop holding area in stable condition. ANGIOGRAPHIC RESULTS The left main artery Normal The left anterior descending artery Has a proximal 10% stenosis followed by a stent which is widely patent free of in-stent restenosis with excellent proximal distal transitioning. There is an additional 30 to 40% mid LAD concentric [id number] stenosis The circumflex artery Is a large dominant vessel with mild vascular ectasia and no focal stenosis greater than 10% The right coronary artery Small nondominant normal The [place] ventriculogram reveals Mid anterior apical hypokinesis estimated ejection fraction 45 to 50% The left ventricular end-diastolic pressure 10 mmHg IMPRESSION Widely patent stent as described above with regional wall motion abnormality from residual myocardial infarction Mildly reduced ejection fraction Normal left ventricular end-diastolic pressure PLAN 1. Patient is alone acceptable risk to proceed with elective hip replacement surgery 2. Ongoing standard therapy for ischemic heart disease Electronically signed by : Mynor Yung, 08/23/2019 12:40:06
== END 2019-08-23 14:55 | disposition home or self-care (01) ==
LOC: CATHLAB 08:37
PROVIDERS: PCP Family Medicine; Visit Provider Internal Medicine
DX: E78.2 Mixed hyperlipidemia (principal); I11.9 Hypertensive heart disease without heart failure; I25.5 Ischemic cardiomyopathy; J44.9 Chronic obstructive pulmonary disease, unspecified; I25.118 Atherosclerotic heart disease of native coronary artery with other forms of angina pectoris; Z79.02 Long term (current) use of antithrombotics/antiplatelets; Z79.51 Long term (current) use of inhaled steroids; Z79.82 Long term (current) use of aspirin; Z79.899 Other long term (current) drug therapy; Z95.5 Presence of coronary angioplasty implant and graft; Z72.0 Tobacco use; I25.2 Old myocardial infarction
CPT/HCPCS: 80048; 85025; 93458; 99152; C1725; C1769; J1644; Q9967

== ENCOUNTER → 2019-08-31 08:10 | Outpatient (CLI) | payer MEDICARE, OTHER, SELFPAY ==
--- NOTE | 2019-08-31 08:20 | XR_ITS ---
PROCEDURE: XR HIP RT 2-3V W/PELVIS CLINICAL INDICATION: right hip pain COMPARISON: HIPCMLT XR hip LT 2-3V w/pelvis from 11/21/2017 FINDINGS: The total hip prosthesis left-side is again noted fixated to the left innominate bone by 2 threaded screws. There is no evidence of loosening of the prosthesis. Severe asymmetrical joint space narrowing is seen right hip with sclerosis and mild spurring of the roof of the acetabulum and moderate spurring of the inferior lip of the acetabulum. These changes have shown interval progression from the previous study 11/21/2017. The SI joints and symphysis pubis appear normal. IMPRESSION: Stable left total hip prosthesis, interval progression of rather severe osteoarthritic change right hip Dictated by: Dr. Óscar Choudhary MD 08/31/2019 11:[address] Óscar Choudhary MD in [place] 08/31/2019 11:36
== END ==
PROVIDERS: PCP Family Medicine; Visit Provider Orthopaedic Surgery
DX: M25.551 Pain in right hip (principal)
CPT/HCPCS: 73502

== ENCOUNTER → 2019-09-03 08:49 | Outpatient (CLI) | payer MEDICARE, OTHER, SELFPAY ==
--- NOTE | 2019-09-03 08:59 | XR_ITS ---
PROCEDURE: XR CHEST 2V CLINICAL HISTORY: COPD COMPARISON: CXR CHEST(2 VIEWS-NOT PORTABLE) from 12/29/2016 CXR CHEST(2 VIEWS-NOT PORTABLE) from 03/08/2017 CXR2V XR chest 2V from 03/13/[address] chest wo con from 09/02/2018 FINDINGS: Mild emphysematous changes are seen with mild hyperexpansion lung babcock. Again noted is tenting of the left hemidiaphragm. Cardiac size is borderline however the vascularity is normal and there is no pleural fluid. Postsurgical changes are seen right mid chest secondary to the previous right mastectomy. There is generalized osteopenia of the thoracic spine with mild stable wedging of an upper thoracic vertebrae. IMPRESSION: Mild COPD, no acute chest pathology noted Dictated by: Dr. Óscar Choudhary MD 09/03/2019 10:[address] Óscar Choudhary MD in [place] 09/03/2019 10:05
[2019-09-03 09:18] LABS: Microscopic, Urine URINE MICROSCOPIC (MICROSCOPIC)
[2019-09-03 09:56] LABS: Basophils # 0.1 K/mm3 (0-0.2); Basophils % 0.9 % (0.1-2.0); Eosinophils # 0.2 K/mm3 (0.0-0.4); Eosinophils % 1.8 % (0.1-12.0); Hematocrit 46.5 % (37.0-47.0); Hemoglobin 15.5 g/dL (12.2-16.2); Lymphocytes # 3.8 K/mm3 (0.7-4.5); Lymphocytes % 38.1 % (10-50); Mean Corpuscular HGB Conc 33.2 g/dL (31.8-35.4); Mean Corpuscular Hemoglobin 31.5 pg (27.0-31.2); Mean Corpuscular Volume 94.7 fl (81-99); Mean Platelet Volume 7.4 fl (7.4-10.4); Monocytes # 0.8 K/mm3 (0.1-1.0); Monocytes % 8.2 % (1.7-9.3); Neutrophils # 5.1 K/mm3 (1.8-7.8); Platelet Count 384 K/mm3 (142-424); Red Blood Count 4.91 M/mm3 (4.20-5.40); Red Cell Distribution Width 13.9 % (11.5-17.5)
[2019-09-03 10:11] LABS: Appearance,Urine CLEAR (Clear); Blood, Urine Negative (Negative); Color,Urine AMBER (Yellow); Glucose,Urine (UA) Negative (Negative); Ketones,Urine TRACE (Negative); Leukocyte Esterase,Urine Negative (Negative); Nitrate,Urine Negative (Negative); Protein,Urine Negative (Negative); Specific Gravity, Urine >= 1.030 (1.005-1.030); Urobilinogen,Urine 0.2 EU/dl (0.2)
[2019-09-03 10:57] LABS: Bilirubin,Urine 1+ (Negative)
[2019-09-03 11:01] LABS: Bacteria,Urine 1+ /lpf; Mucus,Urine 2+ /lpf
[2019-09-03 11:12] LABS: Chloride 104 mmol/L (98-107)
[2019-09-03 11:13] LABS: Potassium 4.9 mmoL/L (3.5-5.1); Sodium 140 mmol/L (136-145)
[2019-09-03 11:15] LABS: Alanine Aminotransferase 23 U/L (12-78); Albumin Level 4.2 g/dl (3.5-5.0); Albumin/Globulin Ratio 1.4 (1.1-1.8); Alkaline Phosphatase 135 U/L (38-126); Anion Gap 11.9 mEq/L (5-15); Aspartate Amino Transferase 25 U/L (14-36); Bilirubin,Total 0.6 mg/dl (0.2-1.3); Blood Urea Nitrogen 18 mg/dl (7-17); Calcium 9.3 mg/dl (8.4-10.2); Carbon Dioxide 29 mmol/L (22.0-30.0); Estimated Glomerular Filt Rate 55 ml/min (>60); GFR (African American) 67 ML/MIN (>60); Glucose 106 mg/dl (74-100); Total Protein,Serum 7.2 g/dl (6.3-8.2)
[2019-09-03 12:28] LABS: Coronavirus 19 IgG Antibody Negative (Negative)
[2019-09-03 13:07] LABS: Coronavirus 19 IgM Antibody Positive (Negative)
== END ==
PROVIDERS: PCP Family Medicine; Visit Provider Orthopaedic Surgery
DX: Z01.818 Encounter for other preprocedural examination (principal); M16.11 Unilateral primary osteoarthritis, right hip
CPT/HCPCS: 36415; 71046; 80053; 81001; 85025; 86328; 86850

== ENCOUNTER → 2019-09-03 14:15 | Outpatient (CLI) | payer MEDICARE, OTHER, SELFPAY ==
[2019-09-05 08:19] LABS: Covid-19 Nasal PCR Sendout UK Not Detected
== END ==
PROVIDERS: PCP Family Medicine; Visit Provider Nurse Practitioner Family
DX: Z03.818 Encounter for observation for suspected exposure to other biological agents ruled out (principal); L40.0 Psoriasis vulgaris; Z79.899 Other long term (current) drug therapy
CPT/HCPCS: 36415; 71046; 80053; 81001; 85025; 86328; 86850; U0003

== ENCOUNTER → 2019-09-13 08:48 | Outpatient (CLI) | payer MEDICARE, OTHER, SELFPAY ==
[2019-09-13 11:25] LABS: Coronavirus 19 IgG Antibody Negative (Negative); Coronavirus 19 IgM Antibody Negative (Negative)
== END ==
PROVIDERS: PCP Family Medicine; Visit Provider Orthopaedic Surgery
DX: Z01.818 Encounter for other preprocedural examination (principal)
CPT/HCPCS: 86328

== ENCOUNTER → 2019-09-17 09:00 | Outpatient (CLI) | payer MEDICARE, OTHER, SELFPAY ==
[2019-09-17 09:04] LABS: Microscopic, Urine URINE MICROSCOPIC (MICROSCOPIC)
[2019-09-17 10:05] LABS: Appearance,Urine CLEAR (Clear); Blood, Urine Negative (Negative); Color,Urine YELLOW (Yellow); Glucose,Urine (UA) Negative (Negative); Ketones,Urine Negative (Negative); Leukocyte Esterase,Urine Negative (Negative); Nitrate,Urine Negative (Negative); Protein,Urine TRACE (Negative); Specific Gravity, Urine >= 1.030 (1.005-1.030)
[2019-09-17 11:18] LABS: Bilirubin,Urine Negative (Negative)
[2019-09-17 11:23] LABS: Bacteria,Urine Trace /lpf; Mucus,Urine 1+ /lpf
[2019-09-17 13:25] LABS: Coronavirus 19 IgG Antibody Negative (Negative); Coronavirus 19 IgM Antibody Negative (Negative)
== END ==
PROVIDERS: Visit Provider Orthopaedic Surgery
DX: Z01.818 Encounter for other preprocedural examination (principal)
CPT/HCPCS: 36415; 81001; 86328; 86850

== ENCOUNTER 2019-09-20 11:34 | Inpatient (IN) | payer MEDICARE, OTHER, SELFPAY ==
--- NOTE | 2019-08-31 14:56 | SW/DCPLANNER ---
CALLED PATIENT THIS AFTERNOON AND HAD TO LEAVE A VOICE MESSAGE.... CALLED TO SEE WHAT HER DISCHARGE PLANS ARE FOR AFTER SURGERY ON August.... I TOLD HER TO CALL ME AND LET ME KNOW IF SHE IS GOING TO NEED SOME ASSISTANCE POST SURGERY...WILL FOLLOW UP TO SEE IF SHE GOT MY MESSAGE AND WHAT SHE MAY NEED....
--- NOTE | 2019-09-02 14:39 | SUR.PREOP ---
09/02/2019 @ 3456--PHONE CALL MADE TO PATIENT. PATIENT UNDERSTANDS THAT LAB WORK AND COVID TESTING NEEDS TO BE COMPLETED @ 0930 ON 09/03/2019. PATIENT UNDERSTANDS IF LAB WORK AND COVID-19 TESTS ARE NOT COMPLETED BY 12PM ON THAT DATE, THE SURGERY SCHEDULED WILL BE CANCELLED AND RESCHEDULED FOR ANOTHER TIME.
--- NOTE | 2019-09-16 14:33 | SUR.PREOP ---
09/16/2019 @ 6183--PHONE CALL MADE TO PATIENT. PATIENT UNDERSTANDS THAT LAB WORK AND COVID TESTING NEEDS TO BE COMPLETED B/W 8-12. PATIENT UNDERSTANDS IF LAB WORK AND COVID-19 TESTS ARE NOT COMPLETED BY 12PM ON THAT DATE, THE SURGERY SCHEDULED WILL BE CANCELLED AND RESCHEDULED FOR ANOTHER TIME.
[2019-09-20] VITALS (18 sets, daily range): BP systolic 84–111; BP diastolic 44–67; PULSE 68–94; RESP 10–20; TEMP 36.1–43; O2SAT 92–96; BMI 35.2
[2019-09-20 08:27] LABS: Microscopic,Cath URINE MICROSCOPIC (MICROSCOPIC)
--- NOTE | 2019-09-20 08:41 | P.PN_ITS ---
[facility] Anesthesia Checklist - Structural Data Admitted From: Home Planned Operative Procedure/s: r total hip Consent for Planned Operative Procedure(s) Verified: Yes - Additional verifications Anesthesia Reactions: No Hx Blood Transfusions: No Blood Transfusion Reaction: No - Airway Assessment C-Spine Mobility Assessed: Yes TMJ Mobility Assessed: Yes Dentition: Partials - Neurological Assessment Level of Consciousness: Awake, Alert, Appropriate - Anesthesia Plan Anesthesia Risk discussed: Yes Anesthesia Plan: Verified ASA Class: III Anesthesia Type: Spinal [facility] History I have reviewed the patient's past medical history: Yes Medical History: Reports:: Cancer (breast), Cardiomyopathy, Chronic Obstructive Pulmonary Disease (COPD), Coronary Artery Disease, Hyperlipidemia, Hypertension Denies:: Diabetes Mellitus Type 1, Diabetes Mellitus Type 2, Internal Pacemaker, MRSA, Seizures *Have you ever received a pneumonia vaccine?: Yes *Have you received a flu vaccine this season?: Yes Other Medical History: Reports: Arthritis, Chemotherapy. Denies: Blood Transfusion Reaction Anesthesia experience/problems:: none Laterality Cases: Left: Total Hip Replacement, Bilateral: Lumpectomy, Mastectomy, Other Other Surgeries: Yes: No Previous Surgery, Cardiac Catheterization, Coronary Stent. No: Pacemaker Amputation: No Fractures: No - *Social History Last grade of school completed: 11th or 12th Smoking Status: Current every day smoker Tobacco Type: cigarettes # Packs/Day (cigarettes): 1 #Yrs smoked (if former smoker): 50 Alcohol Intake: never Alcohol Intake Frequency:: other Substance Use Type: denies use *Occupational Status:: retired Housing: house Household Members: spouse *Travel in the last 8 weeks: None Family Hx:: No significant family history
[2019-09-20 09:09] LABS: Appearance,Urine/Cath CLEAR (Clear); Bilirubin,Cath Negative (Negative); Blood, Urine/Cath Negative (Negative); Color,Urine/Cath YELLOW (Yellow); Glucose,Urine/Cath (UA) Negative (Negative); Ketones,Urine/Cath Negative (Negative); Leukocyte Esterase,Cath Negative (Negative); Nitrate,Cath Negative (Negative); Protein,Urine/Cath Negative (Negative); Specific Gravity, Urine/Cath >= 1.030 (1.005-1.030); Urobilinogen,Cath 0.2 EU/dl (0.2)
[2019-09-20 10:10] LABS: RBC,Urine/Cath Occasional # /hpf (0-3); WBC,Urine/Cath Occasional #/hpf (0-3)
[2019-09-20 10:11] LABS: Bacteria,Urine/Cath OCCASSIONAL /lpf
--- NOTE | 2019-09-20 11:15 | P.PN_ITS ---
[facility] Anesthesia Record Part I Intake, IV Amount: 2,800 Estimated blood loss (mL): 250 Urine output (mL): 300 Blood Products used (#): none Blood Pressure: 96/46 SaO2: 94 Pulse Rate: 77 Respiratory Rate: 10 Temperature: 97.8 F Patient is:: Awake, Stable Stable to PACU at:: 11:10
--- NOTE | 2019-09-20 11:15 | XR_ITS ---
PROCEDURE: XR HIP RT 2-3V W/PELVIS CLINICAL INDICATION: s/p right total hip arthroplasty Follow-up hip arthroplasty COMPARISON: XR HIP RT 2-3V W/PELVIS from 08/31/2019 FINDINGS: Status post right hip arthroplasty with bipolar prosthesis present with good alignment. Postsurgical gas noted IMPRESSION: Status post right hip arthroplasty Dictated by: Christian Sla MD 09/20/2019 12:18 Electronically signed by Christian Sal MD in [place] 09/20/2019 12:18
--- NOTE | 2019-09-20 11:18 | SUR.PHASEI ---
1119-respiratory therapy at bedside administering breathing tx per [employer]TI [employer] MISSILEMAN orders
--- NOTE | 2019-09-20 11:45 | HMH.OPNOTE ---
Date of procedure: 09/20/19 Pre-op Diagnosis:: Advanced degenerative joint disease, right hip Post-op Diagnosis:: Same Procedure performed:: Uncemented total hip arthroplasty, RIGHT hip Surgeon:: Manuelito Orellana MD Edger Saw Operator(s):: Brenda Bacon GAMES MANAGER:: Luciano Dunham Anesthesia: spinal Estimated blood loss (mL): 250 Clinical Note:: Patient is a 64-year-old female who has end-stage osteoarthritis of her RIGHT hip unresponsive to conservative management. The arthritis is causing severe pain and significant disability and has not responded well to conservative management. She cannot even take a few steps without pain and she is dependent on a cane for mobilization. The pain also is affecting her lifestyle, activities of daily living and significantly impacting her sleep. She is also at a high risk of falls from the arthritis. Therefore a total hip arthroplasty is indicated to relieve pain and the help prevent the disability and risk of falls. Please refer to my office note for full details. Operative findings:: Preoperative examination and x-ray findings were consistent with the above diagnosis. Intraoperatively, end-stage osteoarthritis of the hip joint is noted. The femoral head is grossly arthritic and misshapen and osteophytes were noted on both the acetabular and the femoral side. The capsule/soft tissues are contracted and very tight. The capsule was thickened and range of motion was markedly decreased. The bone quality is good. Operative note:: On the day of the procedure the patient and family were met in the preoperative area and the patient was positively identified. A physical examination was performed and documented. The operative site was appropriately marked and initialed by me. I again reviewed the diagnosis, natural history and management options in detail including both nonsurgical and surgical. We discussed the proposed surgery, risks and benefits and alternatives in detail. The complications discussed include but are not limited to infection, bleeding, injury to nerves, blood vessels and tendons, DVT and PE, fracture, limb length inequality, dislocation, implant malpositioning, implant failure, squeaking, loosening, acetabular wear, osteolysis, periprosthetic femur fracture, heterotopic ossification, abductor weakness and limp, incomplete relief of pain, incomplete recovery of function, chronic pain, likely need for further surgery in future including revision, anesthetic complications including heart attack, stroke and even . We also discussed the postoperative recovery and rehabilitation. Patient verbalized a good understanding and wished to proceed with the proposed surgery. Patient understood the risks, agreed to proceed with surgery, signed the consent form and no guarantees or assurances were given or implied. The patient was brought to the operating room and a spinal anesthesia was administered by the trim setter helper. The patient was then positioned in the LEFT lateral decubitus position with the RIGHT hip facing up. We used Wixon hip positioner for this. All the bony prominences were appropriately padded. The RIGHT hip was then prepped with isopropyl alcohol followed by chlorhexidine and draped in the usual sterile fashion. The entire operative team wore isolation suits and the Operating Room traffic was controlled. The skin incision was marked for a posterior approach to the hip joint. The perineum and the operative site were sealed off with Ioban drape. A preprocedure timeout was performed as per hospital protocol identifying the patient, correct surgery and correct site. Administration of 2 g of prophylactic IV Ancef was confirmed with the anesthetic team. Before completion of the procedure 1 more gram of IV Ancef was administered as the operating time was over 2 hours. We have also administered IV tranexamic acid just before the incision and another dose at the end of the procedure, to reduce the mary alice-operative bleeding. A posterior ap
--- NOTE | 2019-09-20 12:06 | P.CONPHA_ITS ---
[facility] Pharmacy VTE Monitoring - Patient Demographics Allergies/Adverse Reactions: Patient Allergies No Known Allergies Allergy (Verified 09/03/19 11:40) Height: 1.52 m Weight: 81.647 kg - VTE Risk Clinical Trial Participant: No - Prophylaxis VTE Prophylaxis Ordered?: Yes Types of VTE Prophylaxis: IPCS Knee High
--- NOTE | 2019-09-20 12:57 | PC.NURSE ---
1138-radiology at bedside 1142-detailed report called to NOREEN Brown 1148-pt transported to med/surg room 202 via hospital bed w/deepti rails up and left in care of NOREEN Brown with bed locked in lowest position, family at bedside, pt stable
--- NOTE | 2019-09-20 14:57 | SW/DCPLANNER ---
Addendum entered by Maira Jacob 09/21/19 07:38: WENT IN TO SEE PATIENT THIS MORNING AFTER SPEAKING WITH DR MCGOWAN, HE STATED WHEN HE SAW HER SHE TOLD HIM SHE WANTED TO GO HOME AND NOT GO TO A LONG-TERM FOR REHAB SERVICES....SHE STATED SHE HAS EVERYTHING SHE NEEDS EXCEPT SHE HAS REQUESTED A BED...SHE SAID HER WILL BE THERE AND HER SISTER IS COMING TO STAY WITH HER....I WILL SET HER UP WITH HER HOME HEALTH AGENCY SHE USED LAST TIME, [facility] IF PT STATES SHE IS WELL ENOUGH TO DO SO.... WILL FOLLOW UP WITH THERAPY AFTER THEY SEE HER.... Original Note: WENT IN TO SEE PATIENT POST SURGERY AND SHE WAS SO SICK AND ASKED FOR ME TO COME BACK IN THE MORNING: WILL PRESENT OPTIONS TO HER IN THE AM AND WORK TOWARD A DISCHARGE PLAN....
--- NOTE | 2019-09-20 15:31 | HMH.PHAINT ---
MEDICATION RECONCILIATION COMPLETED USING EXTERNAL FILL HISTORY AND PHARMACY.
--- NOTE | 2019-09-20 17:01 | HMH.CONS ---
*Admission Date: 09/20/19 *Reason for consult:: Medical management/primary care continuity *History of present illness: 64-year-old female with severe osteoarthritis of the right hip underwent uncemented right hip arthroplasty earlier today. I have been consulted for medical management as the patient's primary care physician. Patient is currently postop and has had some nausea after eating spaghetti for lunch. Nausea has been treated successfully with Zofran. At present she denies any problems including chest pain or shortness of breath. She does report sensation is beginning to return to the right lower extremity [facility] History I have reviewed the patient's past medical history: Yes Medical History: Reports:: Cancer (breast), Cardiomyopathy, Chronic Obstructive Pulmonary Disease (COPD), Coronary Artery Disease, Hyperlipidemia, Hypertension Denies:: Diabetes Mellitus Type 1, Diabetes Mellitus Type 2, Internal Pacemaker, MRSA, Seizures *Have you ever received a pneumonia vaccine?: Yes *Have you received a flu vaccine this season?: Yes Other Medical History: Reports: Arthritis, Chemotherapy. Denies: Blood Transfusion Reaction Anesthesia experience/problems:: none Laterality Cases: Left: Total Hip Replacement, Right: Mastectomy, Bilateral: Lumpectomy, Other Other Surgeries: Yes: No Previous Surgery, Cardiac Catheterization, Coronary Stent. No: Pacemaker Amputation: No Fractures: No - *Social History Last grade of school completed: High school graduate Smoking Status: Current every day smoker Tobacco Type: cigarettes # Packs/Day (cigarettes): 1 #Yrs smoked (if former smoker): 50 Alcohol Intake: never Alcohol Intake Frequency:: other Substance Use Type: denies use *Occupational Status:: retired Housing: house Household Members: spouse *Travel in the last 8 weeks: None Family Hx:: Cancer, Coronary Artery Disease, Hyperlipidemia, Hypertension Review of Systems - Review of Systems Review of systems:: pertinent systems reviewed and negative unless documented below Meds Home Medications Medication Instructions Recorded Confirmed Type celecoxib 200 mg capsule 200 mg PO BIDWM 08/20/18 09/20/19 History etanercept 50 mg/mL (1 mL) 50 mg SQ QWEEK 08/20/18 09/20/19 History subcutaneous syringe umeclidinium 62.5 mcg/actuation 1 inh INHALATION DAILY 08/20/18 09/20/19 History blister powder for inhalation Aspirin [Low Dose Aspirin EC] 81 mg PO DAILY 09/03/19 09/20/19 History Atorvastatin Calcium [Lipitor 40mg 40 mg PO DAILY 09/03/19 09/20/19 History Tab] Clopidogrel Bisulfate [Plavix 75mg 75 mg PO DAILY 09/03/19 09/20/19 History Tab] Furosemide [Furosemide 40MG tAB] 40 mg PO DAILY 09/03/19 09/20/19 History Metoprolol Succinate [Metoprolol 50 mg PO DAILY 09/03/19 09/20/19 History Succinate 50mg Tablet*] Spironolactone [Spironolactone 25 mg PO DAILY 09/03/19 09/20/19 History 25mg Tablet] Fluticasone/Vilanterol [Breo 1 inh IH DAILY 09/20/19 09/20/19 History Ellipta 100-25 Mcg INH] Allergies Allergy/AdvReac Type Severity Reaction Status Date / Time No Known Allergies Allergy Verified 09/03/19 11:40 Exam Vital signs and Labs for Last 24 Hours: Temp Pulse Resp BP Pulse Ox 97.9 F 79 17 95/49 L 96 09/20/19 15:52 09/20/19 15:52 09/20/19 15:52 09/20/19 15:52 09/20/19 15:52 Laboratory Results - last 24 hr 09/20/19 06:49: Blood Type O Positive, Antibody Screen Negative, Crossmatch (AHG) See Detail 09/20/19 08:00: Urine Color Yellow, Urine Appearance Clear, Urine pH 6.0, Ur Specific [place] >= 1.030, Urine Protein Negative, Urine Glucose (UA) Negative, Urine Ketones Negative, Urine Blood Negative, Urine Nitrate Negative, Urine Bilirubin Negative, Urine Urobilinogen 0.2, Ur Leukocyte Esterase Negative, Urine RBC Occasional, Urine WBC Occasional, Ur Squamous Epith Cells 5-10, Urine Bacteria Occassional I & O for Last 24 hours: Intake & Output 09/18/19 09/19/19 09/20/19 09/21/19
--- NOTE | 2019-09-20 18:23 | PC.NURSE ---
ALERT AND ORIENTED X4. PT HAS BEEN RUDE AND HOSTILE AT TIMES TO STAFF. PT COMPLAINED OF NAUSEA, MEDICATION ADMINISTER AND EFFECTIVE. PT DENIES PAIN AT THIS TIME. VSS. ABDUCTOR PILLOW AND ICE PACKS IN PLACE. TEMPLE CATHETER IS SECURE, PATENT, AND DRAINING CLEAR YELLOW URINE. SAFETY MEASURES IN PLACE, WILL CONTINUE TO MONITOR
--- NOTE | 2019-09-20 19:08 | PC.NURSE ---
report given to abi
--- NOTE | 2019-09-20 19:46 | HMH.ORTHPN ---
Subjective Date: 09/20/19 Time: 19:00 Principal diagnosis: Status post total hip arthroplasty, right Interval history: Patient is status post right total hip arthroplasty post op day #0. Patient is lying down in the bed and says she is comfortable and is reporting no problems. She says did have some nausea earlier in the afternoon but not anymore. Patient has minimal pain and says it's well-controlled with medication. No history of any cough, chest pain, shortness of breath or palpitations. Patient says she is eating and drinking well. No history of any distal tingling or numbness. PN: Obj Ex Vital signs: Temp Pulse Resp BP Pulse Ox 97.9 F 79 17 95/49 L 96 09/20/19 15:52 09/20/19 15:52 09/20/19 15:52 09/20/19 15:52 09/20/19 15:52 Narrative: Laboratory Results - last 24 hr 09/20/19 06:49: Blood Type O Positive, Antibody Screen Negative, Crossmatch (AHG) See Detail 09/20/19 08:00: Urine Color Yellow, Urine Appearance Clear, Urine pH 6.0, Ur Specific [place] >= 1.030, Urine Protein Negative, Urine Glucose (UA) Negative, Urine Ketones Negative, Urine Blood Negative, Urine Nitrate Negative, Urine Bilirubin Negative, Urine Urobilinogen 0.2, Ur Leukocyte Esterase Negative, Urine RBC Occasional, Urine WBC Occasional, Ur Squamous Epith Cells 5-10, Urine Bacteria Occassional Exam General appearance: alert, active, awake, no acute distress Cardiovascular: regular rate & rhythm, normal peripheral pulses Respiratory: No respiratory distress noted, speaks in full sentences ABD: soft and non tender Neuro: alert, awake, oriented x 3 Genitourinary: Catheter in situ. On examination of the lower extremities the limb lengths are equal. On examination of the right hip the dressings are clean, dry and intact. Distal pulses are 2+. Distal sensation is intact to light touch throughout. No motor deficits noted distally. She is able to actively mobilize foot and ankle bilaterally. - Urinary Catheter Management Atkins Cath placed during this visit: no Progress Note: A&P (1) Status post right hip replacement Status: Acute Current Visit: Yes (2) CAD (coronary artery disease) Status: Chronic Current Visit: No (3) COPD (chronic obstructive pulmonary disease) Status: Chronic Current Visit: No (4) HHD (hypertensive heart disease) Status: Chronic Current Visit: No Assessment and Plan for All Diagnoses:: I have reviewed the clinical and operative findings and procedure performed with the patient. Postoperative x-ray satisfactory with good alignment and fixation of the total hip arthroplasty components. Patient is doing well and reports no problems. Continue abduction pillow when in bed and continue standard precautions for the posterior approach hip replacement. Start physical therapy tomorrow and mobilize weightbearing as tolerated. Discontinue the urinary catheter on postop day 1. Case management consult regarding discharge planning. Continue DVT prophylaxis recommend DVT prophylaxis for 6 weeks postop. Continue medical management as per Dr. Solares.
[2019-09-21] VITALS (7 sets, daily range): BP systolic 94–125; BP diastolic 46–58; PULSE 71–123; RESP 16–20; TEMP 36.3–37.4; O2SAT 91–94; BMI 36.6
--- NOTE | 2019-09-21 03:49 | PC.NURSE ---
a&OX4 pt lungs clear throughout. surgical dressing on rt hip c/d/i. pt medicated for pain once this shift per MAR. on reassessment pt was resting quietly in bed. F/C patent draining yellow clear urine. 20G LFA LR @ 75. 20G L wrist SL. SCUD applied to left leg.
[2019-09-21 06:49] LABS: Basophils % 0.3 % (0.1-2.0); Eosinophils # 0.1 K/mm3 (0.0-0.4); Eosinophils % 1.1 % (0.1-12.0); Hematocrit 32.1 % (37.0-47.0); Hemoglobin 10.7 g/dL (12.2-16.2); Lymphocytes # 2.3 K/mm3 (0.7-4.5); Lymphocytes % 18.8 % (10-50); Mean Corpuscular HGB Conc 33.3 g/dL (31.8-35.4); Mean Corpuscular Hemoglobin 31.3 pg (27.0-31.2); Mean Corpuscular Volume 94.1 fl (81-99); Mean Platelet Volume 7.5 fl (7.4-10.4); Monocytes # 0.9 K/mm3 (0.1-1.0); Monocytes % 7.1 % (1.7-9.3); Neutrophils % 72.7 % (37.0-80.0); Platelet Count 275 K/mm3 (142-424); Red Blood Count 3.41 M/mm3 (4.20-5.40); Red Cell Distribution Width 13.7 % (11.5-17.5); White Blood Count 12.4 K/mm3 (4.8-10.8)
[2019-09-21 06:50] LABS: Chloride 105 mmol/L (98-107); Sodium 134 mmol/L (136-145)
[2019-09-21 06:51] LABS: Potassium 4.5 mmoL/L (3.5-5.1)
[2019-09-21 06:53] LABS: Blood Urea Nitrogen 13 mg/dl (7-17); Creatinine Clearance Estimated 74 mL/min (50-200); Estimated Glomerular Filt Rate 72 ml/min (>60); GFR (African American) 87 ML/MIN (>60)
[2019-09-21 06:54] LABS: Anion Gap 6.5 mEq/L (5-15); Calcium 7.9 mg/dl (8.4-10.2); Carbon Dioxide 27 mmol/L (22.0-30.0); Glucose 146 mg/dl (74-100)
--- NOTE | 2019-09-21 07:00 | HMH.ACPN2 ---
Internal Medicine - PN: Subj *Date: 09/21/19 *Time: 07:00 Interval history: Patient has no complaints this morning. Pain is controlled. She denies further nausea overnight. Exam Vital signs and Labs for Last 24 Hours: Temp Pulse Resp BP Pulse Ox 99.4 F 115 H 16 99/52 L 94 L 09/21/19 04:00 09/21/19 04:00 09/21/19 04:00 09/21/19 04:00 09/21/19 04:00 Laboratory Results - last 24 hr 09/20/19 06:49: Blood Type O Positive, Antibody Screen Negative, Crossmatch (AHG) See Detail 09/20/19 08:00: Urine Color Yellow, Urine Appearance Clear, Urine pH 6.0, Ur Specific [place] >= 1.030, Urine Protein Negative, Urine Glucose (UA) Negative, Urine Ketones Negative, Urine Blood Negative, Urine Nitrate Negative, Urine Bilirubin Negative, Urine Urobilinogen 0.2, Ur Leukocyte Esterase Negative, Urine RBC Occasional, Urine WBC Occasional, Ur Squamous Epith Cells 5-10, Urine Bacteria Occassional 09/21/19 06:30: WBC 12.4 H, RBC 3.41 L, Hgb 10.7 L, Hct 32.1 L, MCV 94.1, MCH 31.3 H, MCHC 33.3, RDW 13.7, Plt Count 275, MPV 7.5, Neut % (Auto) 72.7, Lymph % (Auto) 18.8, [place] % (Auto) 7.1, Eos % (Auto) 1.1, Baso % (Auto) 0.3, Neut # (Auto) 9.0 H, Lymph # (Auto) 2.3, [place] # (Auto) 0.9, Eos # (Auto) 0.1, Baso # (Auto) 0.0 09/21/19 06:30: Sodium 134 L, Potassium 4.5, Chloride 105, Carbon Dioxide 27, Anion Gap 6.5, BUN 13, Creatinine 0.80, Estimated Creat Clear 74, Estimated GFR 72, Est GFR ( Amer) 87, Glucose 146 H, Calcium 7.9 L I & O for Last 24 hours: Intake & Output 09/18/19 09/19/19 09/20/19 09/21/19 11:59 11:59 11:59 11:59 Intake Total 2850 / 2850 1262 / 1262 Output Total 100 / 100 500 / 500 Balance 2750 / 2750 762 / 762 Weight 180 lb 186 lb 9 oz Narrative: Patient looks well and she is sitting up and eating breakfast this morning. Lungs are clear. Heart has a regular rate and rhythm. Right hip dressing is clean dry and intact. Assessment and Plan (1) Status post right hip replacement Current visit: Yes Status: Acute Category: Surgical Code(s): Z96.641 - Presence of right artificial hip joint (2) CAD (coronary artery disease) Current visit: No Status: Chronic Qualifiers: Category: Medical Code(s): I25.10 - Atherosclerotic heart disease of [place] coronary artery without angina pectoris (3) COPD (chronic obstructive pulmonary disease) Current visit: No Status: Chronic Qualifiers: Category: Medical Code(s): J44.9 - Chronic obstructive pulmonary disease, unspecified (4) HHD (hypertensive heart disease) Current visit: No Status: Chronic Qualifiers: Category: Medical Code(s): I11.9 - Hypertensive heart disease without heart failure - Assessment and plan all Dx Assessment and Plan for all problems:: 1. Add patient's metoprolol ER 50 mg to her regimen 2. PT eval today. Patient plan is to discharge to home
--- NOTE | 2019-09-21 09:16 | HMH.PTEV ---
Physical Therapy Evaluation Rehab PT IP Evaluation Start: 09/20/19 11:36 Freq: ONCE Status: Active Protocol: Document 09/21/19 09:12 PHORMARINO (Rec: 09/21/19 09:16 PHORNE [id number]) Subjective/History History History 64 yowf adm to [facility] for R MEIR due to OA. She reports she has 1 step to enter the home and has a walker that she uses for ambulation at baseline. Subjective Subjective Pt reports some R hip discomfort, but not more than expected post-op. Rehab PT IP Eval Objective Appearance Patient Behavior Appropriate Patient Orientation Person,Place,Time Difficulty following instructions none Speech Pattern Clear Ambulation Patient Able to Ambulate Yes Ambulation Observation IP General Gait Pattern Observation Antalgic Gait,Decrease Weight Bear (R) Ambulation Distance (feet) 4 Ambulation Assistive Device Rolling Walker Ambulation Ability Contact Guard/Hand Hold Balance Ability to Arise Able, uses arms to help Sitting Balance Steady, safe Standing Balance Steady, wide stance Dynamic Sitting Balance Ability Good Dynamic Standing Balance Ability Fair Transfers Bed Transfer Ability Minimal x 1 (25% assist) Chair Transfer Ability Minimal x 1 (25% assist) Sit to Stand Bed Transfer Ability Minimal x 1 (25% assist) Sit to Stand Chair Transfer Ability Minimal x 1 (25% assist) ROM All Extremities PT ROM Status WFL Abnormal ROM Comment except R hip NT MMT All Extremities PT MMT WFL Abnormal MMT Grade except R hip grossly 2/5. Rehab PT IP prob,goals,plan Problems Date of Evaluation: 09/21/19 PT IP Problems Bed Mobility,Transfers,Gait Rehab Potential Rehab Potential Good Plan PT Intervention Plan Bed Mobility,Transfers,Gait, Therapeutic Exercise PT Plan Frequency BID Duration LOS Discharge Goals Bed Transfer Ability Contact Guard/Hand Hold Sit to Stand Chair Transfer Ability Contact Guard/Hand Hold Ambulation Assistive Device Rolling Walker Ambulation Distance (feet) 20 Discharge Plan PT Discharge Plan Pt is appropriate to return home once medically stable. G -code Required No Eval Complexity Eval Charge Codes 15779 - Moderate Complexity PHYSICIAN CERTIFICATION: I certify the specified therapy servi
--- NOTE | 2019-09-21 09:34 | HMH.OTEV ---
OT Inpatient Evaluation Rehab OT IP Evaluation Start: 09/20/19 11:36 Freq: ONCE Status: Complete Protocol: Document 09/21/19 09:26 YESSI (Rec: 09/21/19 09:34 [id number] Rehab OT IP Assessment Subjective History Pt oriented x 3 on arrival for evaluation. Pt agreeable to engage in therapy evaluation. Pt had a total hip arthroplasty to right hip on . Pt reports prior to surgery she was completely independent with all ADL's and IADL's; pt also still drove. Pt did use walker during ambulation to increase safety. Subjective This is my second hip surgery . Objective Patient Orientation Person,Place,Birthday Upper Extremity Gross ROM WFL Bed Mobility bed mobility-scooting,bed mobility - supine/sit,bed mobility - rolling Assist Level Minimal x 1 (25% assist) Transfer Training Sit/Stand Transfer Assist Level Contact Guard/Hand Hold Chair Transfer Ability Contact Guard/Hand Hold Chair Transfer Technique Sit to/from Ambulatory Chair Transfer Assistive Devices Rolling Walker Rehab OT IP prob,goals,plan Problems Date of Evaluation: 09/21/19 OT IP Problems Bed Mobility,Transfers,Gait, Balance,Self care,Safety Rehab Potential Rehab Potential Good Equipment Needs Assistive Devices Rolling / Wheeled Walker Plan OT intervention Plan Bed Mobility,Transfers,Gait, Balance,Self care,Safety, Therapeutic Exercise OT Plan Frequency Daily Duration LOS Discharge Goals Bed Mobility Ability Standby Assistance Sit to Stand Chair Transfer Ability Supervision/Stand by Chair Transfer Ability Supervision/Stand by Chair Transfer Technique Sit to/from Ambulatory Chair Transfer Assistive Devices Rolling Walker Self care skills fully toilet trained,uses utensils to feed self Feeding Ability Independent Lower Body Dressing Ability Assistance X1 Upper Body Dressing Ability Standby Assistance Bathing Ability Assistance x1 Performing Toilet Hygiene Ability Standby Assistance Overall Commode/Toilet Transfer Ability Standby Assistance Commode/Toilet Transfer Technique Sit to/from Ambulatory Discharge Plan OT Dischar
--- NOTE | 2019-09-21 12:53 | P.PN_ITS ---
[facility] Anesthesia Record Part II Discharge Time: 11:48 Destination: Medical Surgical Department PACU nurse assessment reviewed?: Yes Patient Condition:: Good Anesthesia Complications:: None Swallowing reflex intact?: Yes Cyanosis?: No Blood Pressure: 94/57 Pulse Rate: 71 Temperature: 97.4 F Mental Status: Alert & Oriented Pain level:: 0 Nausea and/or vomitting:: None Intake, IV Amount: 0
--- NOTE | 2019-09-21 13:20 | HMH.ORTHPN ---
Subjective Date: 09/21/19 Time: 12:00 Principal diagnosis: Status post total hip arthroplasty, right Interval history: Patient is status post right total hip arthroplasty post op day #1. Patient is lying down on the bed and says she is doing well and reports no problems. Patient has minimal pain and says it's well-controlled with medication. No history of any nausea or vomiting. No history of any cough, chest pain, shortness of breath or palpitations. Patient says she is eating and drinking well. No history of any distal tingling or numbness. PN: Obj Ex Vital signs: Temp Pulse Resp BP Pulse Ox 97.4 F L 71 18 94/57 L 91 L 09/21/19 12:54 09/21/19 12:54 09/21/19 08:00 09/21/19 12:54 09/21/19 08:00 Narrative: Laboratory Results - last 24 hr 09/21/19 06:30: WBC 12.4 H, RBC 3.41 L, Hgb 10.7 L, Hct 32.1 L, MCV 94.1, MCH 31.3 H, MCHC 33.3, RDW 13.7, Plt Count 275, MPV 7.5, Neut % (Auto) 72.7, Lymph % (Auto) 18.8, [place] % (Auto) 7.1, Eos % (Auto) 1.1, Baso % (Auto) 0.3, Neut # (Auto) 9.0 H, Lymph # (Auto) 2.3, [place] # (Auto) 0.9, Eos # (Auto) 0.1, Baso # (Auto) 0.0 09/21/19 06:30: Sodium 134 L, Potassium 4.5, Chloride 105, Carbon Dioxide 27, Anion Gap 6.5, BUN 13, Creatinine 0.80, Estimated Creat Clear 74, Estimated GFR 72, Est GFR ( Amer) 87, Glucose 146 H, Calcium 7.9 L Intake & Output 09/19/19 09/20/19 09/21/19 09/22/19 11:59 11:59 11:59 11:59 Intake Total 2850 / 2850 1502 / 1502 0 / 0 Output Total 100 / 100 500 / 500 Balance 2750 / 2750 1002 / 1002 0 / 0 Weight 180 lb 186 lb 9 oz Exam General appearance: alert, active, awake, no acute distress Cardiovascular: regular rate & rhythm, normal peripheral pulses Respiratory: No respiratory distress noted, speaks in full sentences ABD: soft and non tender Neuro: alert, awake, oriented x 3 Genitourinary: Catheter in situ. On examination of the lower extremities the limb lengths are equal. On examination of the right the dressings are clean, dry and intact. Distal pulses are 2+. Distal sensation is intact to light touch throughout. No motor deficits noted distally. - Urinary Catheter Management Atkins Cath placed during this visit: no Progress Note: A&P (1) Status post right hip replacement Status: Acute Current Visit: Yes (2) CAD (coronary artery disease) Status: Chronic Current Visit: No (3) COPD (chronic obstructive pulmonary disease) Status: Chronic Current Visit: No (4) HHD (hypertensive heart disease) Status: Chronic Current Visit: No Assessment and Plan for All Diagnoses:: I have reviewed the clinical findings and progress with the patient. Patient is doing well and reports no problems. Patient is mobilizing well weightbearing as tolerated on the right side with the walker and to continue the same. Continue DVT prophylaxis. Continue abduction pillow when in bed and continue standard precautions for the posterior approach hip replacement. Discontinue IV fluids and discontinue the urinary catheter. Case management looking into regarding discharge planning-patient wants to go home with home health. Continue medical management as per Dr. Solares.
--- NOTE | 2019-09-21 16:23 | PC.NURSE ---
pt arrived on unit at 1148 per director of community center as well as [employer]. timing adjusted
--- NOTE | 2019-09-21 18:06 | PC.NURSE ---
PT HAS DONE WELL TODAY WITH GETTING TO BSC WITH ONE ASSIST. PT C/O PAIN TO RIGHT HIP X1 AFTER PT, MEDICATED PER MAR, DESIRED EFFECT. PT GAVE HERSELF A BED BED WITH STANDBY ASSIST. VSS. WILL CONT. TO MONITOR.
--- NOTE | 2019-09-21 19:06 | PC.NURSE ---
report given to abi
--- NOTE | 2019-09-21 23:45 | PC.NURSE ---
initial assessment, dressing to right hip surgical site C/D/I, ice pack applied for comfort
[2019-09-22 04:00] VITALS: BP 90/54; PULSE 113; RESP 16; TEMP 37; O2SAT 90
[2019-09-22 05:00] VITALS: BMI 37.8
[2019-09-22 06:53] LABS: Basophils % 0.3 % (0.1-2.0); Eosinophils # 0.2 K/mm3 (0.0-0.4); Eosinophils % 1.7 % (0.1-12.0); Hematocrit 33.7 % (37.0-47.0); Hemoglobin 11.1 g/dL (12.2-16.2); Lymphocytes # 2.5 K/mm3 (0.7-4.5); Lymphocytes % 18.2 % (10-50); Mean Corpuscular HGB Conc 32.8 g/dL (31.8-35.4); Mean Corpuscular Hemoglobin 31.3 pg (27.0-31.2); Mean Corpuscular Volume 95.2 fl (81-99); Mean Platelet Volume 8.1 fl (7.4-10.4); Monocytes # 1.2 K/mm3 (0.1-1.0); Monocytes % 8.3 % (1.7-9.3); Neutrophils % 71.5 % (37.0-80.0); Platelet Count 272 K/mm3 (142-424); Red Blood Count 3.54 M/mm3 (4.20-5.40); White Blood Count 13.9 K/mm3 (4.8-10.8)
[2019-09-22 07:12] LABS: Chloride 106 mmol/L (98-107); Potassium 4.3 mmoL/L (3.5-5.1); Sodium 135 mmol/L (136-145)
[2019-09-22 07:15] LABS: Anion Gap 5.3 mEq/L (5-15); Blood Urea Nitrogen 10 mg/dl (7-17); Carbon Dioxide 28 mmol/L (22.0-30.0); Creatinine Clearance Estimated 76 mL/min (50-200); Estimated Glomerular Filt Rate 72 ml/min (>60); GFR (African American) 87 ML/MIN (>60)
[2019-09-22 07:16] LABS: Calcium 8.5 mg/dl (8.4-10.2); Glucose 120 mg/dl (74-100)
[2019-09-22 08:00] VITALS: BP 101/56; PULSE 111; RESP 20; TEMP 37.1; O2SAT 90
--- NOTE | 2019-09-22 08:39 | HMH.ACPN2 ---
Internal Medicine - PN: Subj *Date: 09/22/19 *Time: 08:39 Interval history: Patient reports being sore . She has been out of bed. Ambulates with walker. Exam Vital signs and Labs for Last 24 Hours: Temp Pulse Resp BP Pulse Ox 98.7 F 111 H 20 101/56 L 90 L 09/22/19 08:00 09/22/19 08:00 09/22/19 08:00 09/22/19 08:00 09/22/19 08:00 Laboratory Results - last 24 hr 09/22/19 06:39: WBC 13.9 H, RBC 3.54 L, Hgb 11.1 L, Hct 33.7 L, MCV 95.2, MCH 31.3 H, MCHC 32.8, RDW 14.0, Plt Count 272, MPV 8.1, Neut % (Auto) 71.5, Lymph % (Auto) 18.2, [place] % (Auto) 8.3, Eos % (Auto) 1.7, Baso % (Auto) 0.3, Neut # (Auto) 10.0 H, Lymph # (Auto) 2.5, [place] # (Auto) 1.2 H, Eos # (Auto) 0.2, Baso # (Auto) 0.0 09/22/19 06:39: Sodium 135 L, Potassium 4.3, Chloride 106, Carbon Dioxide 28, Anion Gap 5.3, BUN 10, Creatinine 0.80, Estimated Creat Clear 76, Estimated GFR 72, Est GFR ( Amer) 87, Glucose 120 H, Calcium 8.5 I & O for Last 24 hours: Intake & Output 09/19/19 09/20/19 09/21/19 09/22/19 11:59 11:59 11:59 11:59 Intake Total 2850 / 2850 1502 / 1502 720 / 720 Output Total 100 / 100 500 / 500 300 / 300 Balance 2750 / 2750 1002 / 1002 420 / 420 Weight 180 lb 186 lb 9 oz 192 lb 4.8 oz - Constitutional no acute distress - *Routine Respiratory Exam Present: CTA bilaterally - *Routine Cardiovascular Exam Present: RRR Assessment and Plan (1) Status post right hip replacement Current visit: Yes Status: Acute Category: Surgical Code(s): Z96.641 - Presence of right artificial hip joint (2) CAD (coronary artery disease) Current visit: No Status: Chronic Qualifiers: Category: Medical Code(s): I25.10 - Atherosclerotic heart disease of [place] coronary artery without angina pectoris (3) COPD (chronic obstructive pulmonary disease) Current visit: No Status: Chronic Qualifiers: Category: Medical Code(s): J44.9 - Chronic obstructive pulmonary disease, unspecified (4) HHD (hypertensive heart disease) Current visit: No Status: Chronic Qualifiers: Category: Medical Code(s): I11.9 - Hypertensive heart disease without heart failure - Assessment and plan all Dx Assessment and Plan for all problems:: Patient can be discharged to home with home health for physical therapy.
--- NOTE | 2019-09-22 11:40 | HMH.ORTHPN ---
Subjective Date: 09/22/19 Time: 11:00 Principal diagnosis: Status post total hip arthroplasty, right Interval history: Patient is status post right total hip arthroplasty post op day #2. Patient is sitting out in the chair and says she is doing well and reports no problems. Patient has minimal pain and says it's well-controlled with medication. No history of any nausea or vomiting. No history of any cough, chest pain, shortness of breath or palpitations. Patient says she is eating and drinking well. No history of any distal tingling or numbness. PN: Obj Ex Vital signs: Temp Pulse Resp BP Pulse Ox 98.7 F 111 H 20 101/56 L 90 L 09/22/19 08:00 09/22/19 08:00 09/22/19 08:00 09/22/19 08:00 09/22/19 08:00 Narrative: Laboratory Results - last 24 hr 09/22/19 06:39: WBC 13.9 H, RBC 3.54 L, Hgb 11.1 L, Hct 33.7 L, MCV 95.2, MCH 31.3 H, MCHC 32.8, RDW 14.0, Plt Count 272, MPV 8.1, Neut % (Auto) 71.5, Lymph % (Auto) 18.2, [place] % (Auto) 8.3, Eos % (Auto) 1.7, Baso % (Auto) 0.3, Neut # (Auto) 10.0 H, Lymph # (Auto) 2.5, [place] # (Auto) 1.2 H, Eos # (Auto) 0.2, Baso # (Auto) 0.0 09/22/19 06:39: Sodium 135 L, Potassium 4.3, Chloride 106, Carbon Dioxide 28, Anion Gap 5.3, BUN 10, Creatinine 0.80, Estimated Creat Clear 76, Estimated GFR 72, Est GFR ( Amer) 87, Glucose 120 H, Calcium 8.5 Intake & Output 09/19/19 09/20/19 09/21/19 09/22/19 11:59 11:59 11:59 11:59 Intake Total 2850 / 2850 1502 / 1502 720 / 720 Output Total 100 / 100 500 / 500 300 / 300 Balance 2750 / 2750 1002 / 1002 420 / 420 Weight 180 lb 186 lb 9 oz 192 lb 4.8 oz Exam General appearance: alert, active, awake, no acute distress Cardiovascular: regular rate & rhythm, normal peripheral pulses Respiratory: No respiratory distress noted, speaks in full sentences ABD: soft and non tender Neuro: alert, awake, oriented x 3 Psych: Appropriate mood and affect for her situation On examination of the lower extremities the limb lengths are equal. Thigh and calf are soft and nontender. On examination of the right hip the dressings are clean, dry and intact. The dressings are changed by me. There is minimal soakage of the dressings. The wound looks clean and healthy. No evidence of any infection or other complications is noted. Distal pulses are 2+. Distal sensation is intact to light touch throughout. No motor deficits noted distally. - Urinary Catheter Management Atkins Cath placed during this visit: no Progress Note: A&P (1) Status post right hip replacement Status: Acute Current Visit: Yes (2) CAD (coronary artery disease) Status: Chronic Current Visit: No (3) COPD (chronic obstructive pulmonary disease) Status: Chronic Current Visit: No (4) HHD (hypertensive heart disease) Status: Chronic Current Visit: No Assessment and Plan for All Diagnoses:: I have reviewed the clinical findings and progress with the patient and her sister. Patient is doing very well and reports no problems. Patient is mobilizing well weightbearing as tolerated on the right side with the walker and to continue the same. Continue DVT prophylaxis. Continue abduction pillow when in bed and continue standard precautions for the posterior approach hip replacement. She wants to be discharged home with home health; she was cleared for discharge by physical therapy as well as Dr. Solares. Recommend DVT prophylaxis for 6 weeks postop- the appropriate agents include Lovenox, Aspirin 325 mg, Xarelto (Rivaroxaban), Eliquis (apixaban) and Coumadin. Follow-up in my office in 2 weeks? time with check x-ray. Please feel free to call our office at [phone] for any orthopaedic questions. Continue medical management as per Dr. Solares.
--- NOTE | 2019-09-22 11:51 | HMH.DCSUM ---
General - General Admission date:: 09/20/19 Discharge date: 09/22/19 HPI HPI: Patient is a 64-year-old female who has end-stage osteoarthritis of her right hip unresponsive to conservative management. She was admitted to hospital following an uncomplicated primary right total hip arthroplasty on 09/20/2019. She is giving a history of progressively worsening right hip pain for a long time. Her x-rays showed severe right hip arthritis. She previously had a left total hip arthroplasty about 4 years ago with very good symptomatic relief. Patient says she has been struggling really with her right hip over the last 3 months or so. She says she can hardly walk a few yards without support. She uses a cane to walk with. She reports night pain and sleep disturbance as well as difficulty with activities of daily living including caring for her feet, dressing and undressing and putting socks and shoes on. She also reports severe stiffness in the right hip. She also reports that her pain is worse in cold weather and also aggravated with walking, weightbearing and climbing stairs. She reports some relief using walking aids and at the moment she mostly walks with a cane. No history of any distal tingling or numbness. No history of any radicular symptoms. She also reports that her right leg feels shorter than the left. She says she almost fell a couple of times because of the hip pain and stiffness but fortunately did not sustain any injuries or fractures. The arthritis is causing severe pain and significant disability and has not responded well to conservative management. The pain also is affecting her lifestyle, activities of daily living and significantly impacting her sleep. She is also at a high risk of falls from her hip arthritis. A total hip arthroplasty is indicated to relieve pain and the help prevent the disability and risk of falls. Hospital Course Hospital Course: Following uncomplicated primary total hip arthroplasty patient was admitted to the inpatient amaro and has progressed well. Her postoperative check x-ray was satisfactory with good alignment and fixation of the components. She was advised to ambulate weightbearing as tolerated on the right side. Patient managed this very well using the walker. Her pain is well controlled with oral analgesics. Her surgical incision is clean and dry without any active discharge or signs of infection. Her distal neurovascular status is intact. No clinical evidence of DVT. Patient is eating and drinking well without any problems. Patient is medically stable at the time of discharge and was medically cleared for discharge by Dr. Solares as well as by the physical therapist. The dressings were changed on the second postoperative day and the wound is healthy and healing well. No signs of any erythema, induration or discharge. Patient was started on Xarelto 10 mg daily for DVT prophylaxis after surgery. However, there is converted to high-dose aspirin at the time of discharge. Her neurovascular status in both lower extremities is intact. Pedal pulses 2+ bilaterally and fully sensate distally. No clinical evidence of DVT noted. Patient was cleared for discharge by physical therapy. On the day of discharge, the wound is clean and dry. The patient's vital signs have been stable throughout and he is afebrile at the time of discharge. She is being discharged home with family and home health for postoperative rehab. Condition at discharge: improved and stable. Treatments and Procedures: Total hip arthroplasty, right hip; date of surgery 09/20/2019 Objective Vital signs: Temp Pulse Resp BP Pulse Ox 98.7 F 111 H 20 101/56 L 90 L 09/22/19 08:00 09/22/19 08:00 09/22/19 08:00 09/22/19 08:00 09/22/19 08:00 no acute distress - *Routine HEENT Exam Head: Present: normocephalic Eye: Present: EOMI ENT: Present: mucous membranes moist - *Routine Neck Exam Present: supple - *Routine Respira
--- NOTE | 2019-09-22 13:04 | SW/DCPLANNER ---
Addendum entered by Maira Jacob 09/24/19 12:54: PATIENT COULD NOT USE [facility] R/T THEY DO NOT HAVE A CERTIFICATE OF NEED TO GO INTO [facility]... SHE HAS A EVART ADDRESS BUT THE PROPERTY IS IN [facility]... IT WAS SENT TO [facility] AND THEY WILL FOLLOW HER... Original Note: SENT REFERRAL TO [facility] FOR A BED FOR THIS PATIENT: PATIENT ALSO HAS AN ORDER FOR HOME HEALTH , PATIENT STATED SHE USED [facility] WITH HER LAST HIP SURGERY AND WISHES TO USE THEIR SERVICES AGAIN... I HAVE SENT THE REFERRAL WITH PAPERWORK AND HAVE ASKED FOR SERVICES TO START [facility]... PATIENT IS GOING TO DISCHARGE LATER THIS AFTERNOON... BED WILL BE DELIVERED TODAY AND PATIENT STATES SHE HAS EVERYTHING ELSE SHE NEEDS....
--- NOTE | 2019-09-22 13:11 | HMH.PHAINT ---
PATIENT WAS COUNSELED ON NEW MEDICATIONS:ASPIRIN 325MG, OXYCODONE/ACETAMINOPHEN, DOCUSATE, AND FERROUS SULFATE. THE PATIENT WILL CONTINUE ALL HOME MEDICATIONS EXCEPT CELEBREX AND ASPIRIN 81 MG. THE PATIENT DID NOT HAVE ANY QUESTIONS.
--- NOTE | 2019-09-22 13:40 | PC.NURSE ---
PATIENT IS CURRENTLY UNABLE TO GET OUT OF BED ALONE. PATIENT IS A 1 PERSON ASSIST ALONG WITH A WALKER TO STAND UP AND AMBULATE.
--- NOTE | 2019-09-22 15:38 | PC.NURSE ---
THIS RN PROVIDED D/C INSTRUCTIONS TO PATIENT AND SISTER. THIS RN EMPHASIZED THE IMPORTANCE OF SIGNS AND SYMPTOMS OF INFECTION. THIS RN EXPLAINED ALL RESTRICTIONS. PATIENT AND SISTER VERBALIZED AN UNDERSTANDING.
== END 2019-09-22 14:28 | disposition home health service (06) | DRG 470 ==
LOC: 2ND 11:35
PROVIDERS: Admitting Provider Orthopaedic Surgery; PCP Family Medicine; Visit Provider Orthopaedic Surgery
PROC: 0SR904A Replacement of Right Hip Joint with Ceramic on Polyethylene Synthetic Substitute, Uncemented, Open Approach (ICD-10-PCS; CPT 27130; principal; 2019-09-20 07:30)
DX: M16.11 Unilateral primary osteoarthritis, right hip (principal); I42.9 Cardiomyopathy, unspecified; J44.9 Chronic obstructive pulmonary disease, unspecified; I25.10 Atherosclerotic heart disease of native coronary artery without angina pectoris; I10 Essential (primary) hypertension; Z72.0 Tobacco use; Z96.642 Presence of left artificial hip joint
CPT/HCPCS: 27130; 36415; 73502; 80048; 81001; 85025; 86328; 86850; 96374; 97116; 97162; 97165; 97530; C1713; C1776; J2405; J2704; J3370

== ENCOUNTER → 2019-10-06 09:10 | Outpatient (CLI) | payer MEDICARE, OTHER, SELFPAY ==
--- NOTE | 2019-10-06 09:14 | XR_ITS ---
PROCEDURE: XR HIP RT 2-3V W/PELVIS CLINICAL INDICATION: sp RT hip MEIR follow-up hip replacement COMPARISON: XR HIP RT 2-3V W/PELVIS from 08/31/2019 XR HIP RT 2-3V W/PELVIS from 09/20/2019 FINDINGS: Status post right hip hemiarthroplasty with good alignment. There is a small bony fragment along the inferior aspect of the acetabular component of the arthroplasty . AP view of the pelvis also shows a total left hip prosthesis in good position. IMPRESSION: Good alignment status post right hip hemiarthroplasty Dictated by: Christian Sal MD 10/06/2019 14:46 Electronically signed by Christian Sal MD in [place] 10/06/2019 14:46
== END ==
PROVIDERS: PCP Family Medicine; Visit Provider Orthopaedic Surgery
DX: Z96.641 Presence of right artificial hip joint (principal); M25.551 Pain in right hip
CPT/HCPCS: 73502

== ENCOUNTER → 2019-12-13 08:50 | Outpatient (CLI) | payer MEDICARE, OTHER, SELFPAY ==
--- NOTE | 2019-12-13 08:56 | XR_ITS ---
PROCEDURE: XR HIP RT 2-3V W/PELVIS CLINICAL INDICATION: sp RT hip replacement Follow-up hip replacement COMPARISON: CR XR HIP RT 2-3V W/PELVIS from 10/06/2019 FINDINGS: Status post bipolar prosthesis placement on the right and total hip prosthesis placement on the left. The right hip prosthesis remains in good position. No evidence orthopedic complication. There is some sclerosis of the right SI joint. IMPRESSION: Good alignment status post bipolar prosthesis placement on the right Dictated by: Christian Sal MD 12/13/2019 17:41 Christian Sal MD in [place] 12/13/2019 17:41
== END ==
PROVIDERS: PCP Family Medicine; Visit Provider Orthopaedic Surgery
DX: Z96.641 Presence of right artificial hip joint (principal); M25.551 Pain in right hip
CPT/HCPCS: 73502

== ENCOUNTER → 2020-04-20 08:48 | Outpatient (CLI) | payer MEDICARE, OTHER, SELFPAY ==
--- NOTE | 2020-04-20 09:02 | XR_ITS ---
PROCEDURE: XR HIP RT 2-3V W/PELVIS CLINICAL INDICATION: follow up RT MEIR COMPARISON: CR XR HIP RT 2-3V W/PELVIS from 12/13/2019 FINDINGS: Status post right hip hemiarthroplasty. There is good alignment with no evidence of orthopedic complication. Incidental note is made of sclerosis of the inferior aspect of the right SI joint. There is a total left hip arthroplasty also present in good position. IMPRESSION: Good alignment status post right hip hemiarthroplasty Dictated by: Christian Sal MD 04/20/2020 13:20 Christian Sal MD in [place] 04/20/2020 13:20
--- NOTE | 2020-04-20 09:03 | MM_ITS ---
PROCEDURE: MM DIG SCREENING MAMM BI W/CAD Digital Breast Tomosynthesis Included CLINICAL INDICATION: SCREENING Cyst right mastectomy. There has been a previous lumpectomy left breast. COMPARISON: MG SCUNILT MM Dig SC mamm unilat LT CAD from 01/30/2018 MG MM DIG SC MAMM UNILAT LT CAD from 02/24/2019 TECHNIQUE: Standard CC and MLO images and 3D Tomosynthesis was obtained. R2 CAD reviewed. FINDINGS: Again noted is prominent post lumpectomy scarring upper outer quadrant left breast. Surgical clips and dystrophic calcifications are again noted. Biopsy clips are seen as well. There are additional benign-appearing calcifications in the inner quadrant of the breast as well. There is no new or suspicious lesions seen. IMPRESSION: Stable exam with prominent postlumpectomy scarring and no suspicious lesions seen BI-RAD Category: 2 Benign Finding(s) FOLLOW-UP: 1YR 1 Year Follow-up (A letter has been sent to the patient regarding results of the study.) Dictated by: Dr. Óscar Choudhary MD 04/22/2020 10:41 Dr. Óscar Choudhary MD in [place] 04/22/2020 10:41
== END ==
PROVIDERS: PCP Family Medicine; Visit Provider Family Medicine
DX: Z96.641 Presence of right artificial hip joint (principal); Z12.31 Encounter for screening mammogram for malignant neoplasm of breast; M25.551 Pain in right hip
CPT/HCPCS: 73502; 77063; 77067

== ENCOUNTER → 2020-10-24 08:52 | Outpatient (CLI) | payer MEDICARE, OTHER, SELFPAY ==
--- NOTE | 2020-10-24 09:00 | XR_ITS ---
PROCEDURE: XR HIP RT 2-3V W/PELVIS CLINICAL INDICATION: s/p rt hip replacement COMPARISON: CR XR HIP RT 2-3V W/PELVIS from 04/20/2020 FINDINGS: Status post right hip hemiarthroplasty placement with good alignment and no evidence of orthopedic complication. No fracture or dislocation. No lytic or blastic change. IMPRESSION: Good alignment status post right hip hemiarthroplasty Dictated by: Christian Sal MD 10/24/2020 11:18 Christian Sal MD in [place] 10/24/2020 11:18
--- NOTE | 2020-10-24 09:00 | XR_ITS ---
PROCEDURE: XR HIP LT 2-3V W/PELVIS CLINICAL INDICATION: s/p LT hip replacement Follow-up hip replacement COMPARISON: CR XR HIP RT 2-3V W/PELVIS from 04/20/2020 FINDINGS: Status post total left hip prosthesis placement with good alignment. No fracture or dislocation. No obvious orthopedic complications. IMPRESSION: Good alignment status post left total hip prosthesis placement Dictated by: Christian Sal MD 10/24/2020 11:17 Christian Sal MD in [place] 10/24/2020 11:17
== END ==
PROVIDERS: PCP Family Medicine; Visit Provider Orthopaedic Surgery
DX: Z96.642 Presence of left artificial hip joint (principal); Z96.641 Presence of right artificial hip joint; M25.552 Pain in left hip; M25.551 Pain in right hip
CPT/HCPCS: 73502

== ENCOUNTER → 2021-05-10 10:05 | Outpatient (CLI) | payer MEDICARE, OTHER, SELFPAY ==
--- NOTE | 2021-05-10 10:09 | MM_ITS ---
PROCEDURE INFORMATION: Exam: MG Left Screening 3D Mammography Exam date and time: 05/10/2021 10:09 AM Age: 65 years old Clinical indication: Screening, h/o bilateral breast cancer. RT breast masectomy, lt breast lumpectomy TECHNIQUE: Imaging protocol: Left Screening tomosynthesis and 2D mammography including computer-aided detection (CAD) when performed. COMPARISON: 1. MG MM DIG SCREENING MAMM BI W/CAD 04/20/2020 9:17 AM 2. MG MM DIG SC MAMM UNILAT LT CAD 02/24/2019 10:00 AM FINDINGS: MAMMOGRAPHY: Breast composition: The breast tissue is composed of scattered areas of fibroglandular density. Mass: None. Architectural distortion: Stable post operative architectural distortion in the left upper outer quadrant with associated benign calcific fat necrosis due to prior lumpectomy for carcinoma. Calcifications: No suspicious calcifications. Asymmetric density: None. Skin thickening: None. Axillary adenopathy: None. Other findings: The patient is status post right mastectomy IMPRESSION: No mammographic evidence of malignancy. Annual screening is recommended unless otherwise clinically indicated. ASSESSMENT: BI-RADS Category 2: Benign
== END ==
PROVIDERS: PCP Family Medicine; Visit Provider Family Medicine
DX: Z12.31 Encounter for screening mammogram for malignant neoplasm of breast (principal)
CPT/HCPCS: 77063; 77067

== ENCOUNTER → 2021-06-18 09:07 | Outpatient (CLI) | payer MEDICARE, OTHER, SELFPAY ==
[2021-06-18 10:08] LABS: Alanine Aminotransferase 21 U/L (12-78); Alkaline Phosphatase 144 U/L (38-126); Aspartate Amino Transferase 27 U/L (14-36); Bilirubin,Direct 0.3 mg/dl (0.0-0.4); Bilirubin,Indirect 0.1 mg/dL (0.0-0.9); Bilirubin,Total 0.4 mg/dl (0.2-1.3); Bilirubin,Unconjugated 0.1 mg/dL (0.0-1.1)
[2021-06-18 10:09] LABS: Albumin Level 3.8 g/dl (3.5-5.0); Cholesterol 178 mg/dl (140-200); Total Protein,Serum 6.8 g/dl (6.3-8.2); Triglycerides 214 mg/dl (30-150); VLDL Cholesterol 43 mg/dL (0-40)
[2021-06-18 10:20] LABS: Direct LDL Cholesterol 100.42 mg/dL (100-129)
[2021-06-18 12:52] LABS: Chol/HDL Ratio 4.3 (1-3.5); HDL Cholesterol 41 mg/dl (40-60)
== END ==
PROVIDERS: PCP Dermatology Dermatopathology; Visit Provider Internal Medicine
DX: L40.0 Psoriasis vulgaris (principal); Z79.899 Other long term (current) drug therapy
CPT/HCPCS: 36415; 80061; 80076

== ENCOUNTER → 2021-07-17 08:51 | Outpatient (CLI) | payer MEDICARE, OTHER, SELFPAY ==
[2021-07-19 19:09] LABS: QuantiFERON-TB Gold Plus Negative (Negative)
== END ==
PROVIDERS: Visit Provider Dermatology Dermatopathology
DX: L40.0 Psoriasis vulgaris (principal)
CPT/HCPCS: 36415; 86480

== ENCOUNTER → 2021-09-10 08:34 | Outpatient (CLI) | payer MEDICARE, OTHER, SELFPAY | PROVIDERS: PCP Family Medicine; Visit Provider Nurse Practitioner Family | DX: Z20.822 Contact with and (suspected) exposure to COVID-19 (principal) | CPT/HCPCS: C9803; U0003; U0005 ==

== ENCOUNTER → 2022-05-21 09:39 | Outpatient (CLI) | payer MEDICARE, OTHER, SELFPAY ==
--- NOTE | 2022-05-21 09:44 | MM_ITS ---
PROCEDURE INFORMATION: Exam: MG Left Screening 3D Mammography Exam date and time: 05/21/2022 9:58 AM Age: 66 years old Clinical indication: Screening. Personal history of bilateral breast cancer, status post right mastectomy and left lumpectomy. TECHNIQUE: Imaging protocol: Left Screening tomosynthesis and 2D mammography including computer-aided detection (CAD) when performed. COMPARISON: 1. MG MM DIG SC MAMM UNILAT LT CAD 05/10/2021 10:18 AM 2. MG MM DIG SCREENING MAMM BI W/CAD 04/20/2020 9:17 AM 3. MG MM DIG SC MAMM UNILAT LT CAD 02/24/2019 10:00 AM 4. MG SCUNILT MM Dig SC mamm unilat LT CAD 01/30/2018 9:19 AM FINDINGS: MAMMOGRAPHY: Breast composition: There are scattered areas of fibroglandular density. Mass: None. Architectural distortion: Stable post lumpectomy architectural distortion upper outer quadrant with related dystrophic calcifications of fat necrosis. Calcifications: No suspicious calcifications. Asymmetric density: None. Skin thickening: None. Axillary adenopathy: None. IMPRESSION: No mammographic evidence of malignancy. Annual screening is recommended unless otherwise clinically indicated. ASSESSMENT: BI-RADS Category 2: Benign
== END ==
PROVIDERS: PCP Family Medicine; Visit Provider Family Medicine
DX: Z12.31 Encounter for screening mammogram for malignant neoplasm of breast (principal)
CPT/HCPCS: 77063; 77067

== ENCOUNTER 2022-10-05 08:10 | Emergency (ER) | payer MEDICARE, OTHER, SELFPAY ==
[2022-10-05 08:15] VITALS: BP 131/69; PULSE 102; RESP 22; TEMP 36.9; O2SAT 90
--- NOTE | 2022-10-05 08:19 | XR_ITS ---
PROCEDURE INFORMATION: Exam: XR Chest Exam date and time: 10/05/2022 8:29 AM Age: 67 years old Clinical indication: Shortness of breath; Additional info: SOB TECHNIQUE: Imaging protocol: Radiologic exam of the chest. Views: 2 views. COMPARISON: CR XR CHEST 2V 09/03/2019 9:05 AM FINDINGS: Lungs: Emphysematous change and interstitial disease. Poorly defined nodular densities overlying the left mid lower lung field, which can be better assessed with CT if clinically indicated. Pleural spaces: Right apical pleural thickening. Heart/Mediastinum: Epicardial fat, without cardiomegaly. Bones/joints: Osteopenia and degenerative change. Soft tissues: Status post right mastectomy. Surgical clips in the right axilla and chest wall. IMPRESSION: 1. Emphysematous change and interstitial disease. 2. Poorly defined nodular densities overlying the left mid lower lung field, which can be better assessed with CT if clinically indicated.
--- NOTE | 2022-10-05 08:32 | EXP.UTC ---
Discharge Plan Disposition Patient Disposition: Home, Self-Care Condition: Good Prescriptions Prescriptions: New azithromycin [azithromycin] 250 mg tablet 250 mg PO DIRECTED Qty: 6 0RF Rx Instructions: Take two (2) tablets on day #1, then one (1) tablet day #2 thru #5 prednisone [prednisone] 20 mg tablet 20 mg PO BID Qty: 10 0RF No Action furosemide 40 mg tablet 40 mg PO DAILY Patient Comments: TAKE 1 TABLET BY MOUTH ONCE DAILY FOR HIGH BLOOD PRESSURE metoprolol succinate 200 mg tablet extended release 24 hr 200 mg PO DAILY Patient Comments: TAKE 1 TABLET BY MOUTH ONCE DAILY clopidogrel 75 mg tablet 75 mg PO DAILY aspirin 81 mg tablet,delayed release (DR/EC) 81 mg PO DAILY Patient Comments: TAKE 1 TABLET BY MOUTH ONCE DAILY spironolactone 25 mg tablet 25 mg PO DAILY Patient Comments: TAKE 1 TABLET BY MOUTH ONCE DAILY FOR HIGH BLOOD PRESSURE Referrals Follow up/Referrals: Anjaan Ybarra MD [Primary Care Provider] - See instructions Activity Restrictions/Add. Instructions Additional Instructions/Restrictions: Start antibiotic today. Be sure to complete entire prescription even if feeling better Tylenol and ibuprofen as needed for pain or fever Humidifier/vaporizer/hot steamy shower Follow-up with primary care tomorrow. Follow-up immediately in the ER of the [facility] for new or worsening symptoms or no noticeable improvement over the next 48-72 hours. Stop smoking Inhaler every 4-6 hours as needed. Should help open airways improved cough, wheezing, shortness of breath Saul Alarcon will not cause drowsiness to use at bedtime to help stop cough so that she can get some sleep Start steroids today. Helps with inflammation therefore coughing and wheezing. Follow directions on package. Clinical Impressions Clinical Impression: Bronchitis Instructions Patient Instructions: Acute Bronchitis Discharge ED Provider: Rae ([facility])Manan [facility] [place] General Stated complaint: SOA Mode of Arrival: Ambulatory Source of Information: Patient Limitations: No Limitations Time Seen by Provider: 10/05/22 08:32 Description of Symptoms (Recalled from Triage Doc. by RN): PATIENT C/O SOA AND PRODUCTIVE COUGH WITH THICK, YELLOW MUCOUS SINCE YESTERDAY HEENT Symptoms (Recalled from RN notes): No Resp Symptoms (Recalled from RN notes): Yes Skin Symptoms (Recalled from RN notes): No MS Symptoms (Recalled from RN notes): No Functional Status (Recalled from RN notes): WNL History of Present Illness Provider Complaint: 67 yr old female presents for soa, coughing up thick,sticky yellow mucus since yesterday Related Data Home Medications Medication Instructions Recorded Confirmed aspirin 81 mg tablet,delayed 81 mg PO DAILY Blood Thinner 10/05/22 10/05/22 release clopidogrel 75 mg tablet 75 mg PO DAILY Blood Thinner 10/05/22 10/05/22 furosemide 40 mg tablet 40 mg PO DAILY Hypertension 10/05/22 10/05/22 metoprolol succinate 200 mg 200 mg PO DAILY Hypertension 10/05/22 10/05/22 tablet,extended release 24 hr spironolactone 25 mg tablet 25 mg PO DAILY . 10/05/22 10/05/22 Previous Rx's Medication Instructions Recorded azithromycin 250 mg tablet 250 mg PO DIRECTED #6 tabs 10/05/22 prednisone 20 mg tablet 20 mg PO BID #10 tabs 10/05/22 Allergies Allergy/AdvReac Type Severity Reaction Status Date / Time atorvastatin [From Lipitor] Allergy Mild Verified 07/16/22 08:42 ezetimibe [From Zetia] AdvReac cramps Verified 07/16/22 08:42 rosuvastatin [From Crestor] AdvReac leg cramps Verified 07/16/22 08:42 Worker's Comp Is this a Worker's Comp case?: No [facility] Disclaimer: The information contained in this section may have been updated after the patient was seen, as this information can be updated by other users. Medical History , PROGRAM COORDINATOR) Abnormal cardiovascular stress test Abnormal echocardiogra
[2022-10-05 08:47] VITALS: BP 131/69; PULSE 102; RESP 22; TEMP 36.9; O2SAT 90
== END 2022-10-05 09:40 | disposition home or self-care (01) ==
PROVIDERS: Emergency Provider Nurse Practitioner Family; PCP Family Medicine
DX: J20.9 Acute bronchitis, unspecified (principal); I20.9 Angina pectoris, unspecified; I42.9 Cardiomyopathy, unspecified; J44.9 Chronic obstructive pulmonary disease, unspecified; F17.210 Nicotine dependence, cigarettes, uncomplicated
CPT/HCPCS: 71046; 99204; 99212; G0463

== ENCOUNTER → 2022-10-17 08:48 | Outpatient (CLI) | payer MEDICARE, OTHER, SELFPAY ==
[2022-10-17 09:20] LABS: Basophils % 0.3 % (0.1-2.0); Eosinophils # 0.2 K/mm3 (0.0-0.4); Eosinophils % 1.4 % (0.1-12.0); Hematocrit 42.7 % (37.0-47.0); Hemoglobin 13.2 g/dL (12.2-16.2); Lymphocytes # 1.9 K/mm3 (0.7-4.5); Lymphocytes % 12.8 % (10-50); Mean Corpuscular HGB Conc 30.9 g/dL (31.8-35.4); Mean Corpuscular Hemoglobin 29.1 pg (27.0-31.2); Mean Platelet Volume 7.3 fl (7.4-10.4); Monocytes # 0.7 K/mm3 (0.1-1.0); Monocytes % 4.8 % (1.7-9.3); Neutrophils # 12.3 K/mm3 (1.8-7.8); Neutrophils % 80.7 % (37.0-80.0); Platelet Count 589 K/mm3 (142-424); Red Blood Count 4.54 M/mm3 (4.20-5.40); Red Cell Distribution Width 14.9 % (11.5-17.5); White Blood Count 15.2 K/mm3 (4.8-10.8)
[2022-10-17 09:21] LABS: MANUAL DIFFERENTIAL MANUAL DIFFERENTIAL (MANUAL DIFF)
[2022-10-17 09:43] LABS: Eosinophils % 3 % (0-3); Lymphocytes % 7 % (10-50); Monocytes % 3 % (2-9); Neutrophils % 87 % (42-76); Platelet Estimate Normal; RBC Morphology Normal; Total Cells Counted 100
[2022-10-17 10:06] LABS: Alanine Aminotransferase 27 U/L (12-78); Albumin Level 3.3 g/dl (3.5-5.0); Alkaline Phosphatase 126 U/L (38-126); Anion Gap 8.7 mEq/L (5-15); Aspartate Amino Transferase 22 U/L (14-36); Bilirubin,Indirect 0.3 mg/dL (0.0-0.9); Bilirubin,Total 0.3 mg/dl (0.2-1.3); Bilirubin,Unconjugated 0.5 mg/dL (0.0-1.1); Blood Urea Nitrogen 14 mg/dl (7-17); Calcium 9.1 mg/dl (8.4-10.2); Carbon Dioxide 32 mmol/L (22.0-30.0); Chloride 104 mmol/L (98-107); Chol/HDL Ratio 6.4 (1-3.5); Cholesterol 216 mg/dl (140-200); Estimated Glomerular Filt Rate 62 ml/min (>60); GFR (African American) 75 ML/MIN (>60); Glucose 114 mg/dl (74-100); HDL Cholesterol 34 mg/dl (40-60); Magnesium 2.2 mg/dl (1.6-2.3); Potassium 4.7 mmoL/L (3.5-5.1); Sodium 140 mmol/L (136-145); Total Protein,Serum 6.5 g/dl (6.3-8.2); Triglycerides 174 mg/dl (30-150); VLDL Cholesterol 35 mg/dL (0-40)
[2022-10-17 10:17] LABS: Direct LDL Cholesterol 141.52 mg/dL (100-129)
[2022-10-17 10:21] LABS: Free T4 (Free Thyroxine) 1.51 ng/dl (0.78-2.19)
[2022-10-17 10:35] LABS: Thyroid Stimulating Hormone 1.52 uIU/mL (0.465-4.68)
[2022-10-21 02:26] LABS: QuantiFERON-TB Gold Plus Negative (Negative)
== END ==
PROVIDERS: Physician Assistant; PCP Family Medicine; Visit Provider Dermatology Dermatopathology
DX: E78.2 Mixed hyperlipidemia (principal); F17.200 Nicotine dependence, unspecified, uncomplicated; I11.9 Hypertensive heart disease without heart failure; I25.10 Atherosclerotic heart disease of native coronary artery without angina pectoris; I25.5 Ischemic cardiomyopathy; J44.9 Chronic obstructive pulmonary disease, unspecified; R06.02 Shortness of breath; R60.0 Localized edema
CPT/HCPCS: 36415; 80048; 80061; 80076; 83735; 84439; 84443; 85007; 85025; 86480

== ENCOUNTER → 2023-03-06 10:56 | Outpatient (CLI) | payer MEDICARE, OTHER, SELFPAY ==
--- NOTE | 2023-03-06 11:00 | XR_ITS ---
FINAL REPORT CLINICAL HISTORY: RT WRIST PAIN FINDINGS: Right wrist Three views were obtained. There is no acute fracture or dislocation. There are mild hypertrophic changes of the basilar joint. There is soft tissue edema over the dorsal aspect of the wrist. The bones are osteopenic. IMPRESSION: Mild degenerative changes. Lobe Reviewed, Interpreted and Dictated by Greyson Vinson MD Transcribed by She Hinton Authenticated and [facility]
== END ==
PROVIDERS: PCP Family Medicine; Visit Provider Family Medicine
DX: M25.531 Pain in right wrist (principal)
CPT/HCPCS: 73110

== ENCOUNTER 2023-03-30 11:57 | Emergency (ER) | payer MEDICARE, OTHER, SELFPAY ==
[2023-03-30 13:05] VITALS: BP 125/68; PULSE 76; RESP 18; TEMP 36.6; O2SAT 95; BMI 30.2
--- NOTE | 2023-03-30 13:27 | ED_ITS ---
Discharge Plan Disposition Patient Disposition: Home, Self-Care Condition: Good Prescriptions Prescriptions: New methylprednisolone 4 mg Tablets,Dose Pack 4 mg PO DIRECTED 6 Days Qty: 21 0RF Rx Instructions: Take 1 pack as directed for 6 days No Action indomethacin 25 mg capsule 25 mg PO BID Patient Comments: TAKE 1 CAPSULE BY MOUTH TWICE DAILY WITH FOOD OR MILK albuterol sulfate 90 mcg/actuation HFA aerosol inhaler inhalation Patient Comments: INHALE 2 PUFFS BY MOUTH NEEDED EVERY 6 HOURS furosemide 40 mg tablet See Rx Instructions .ROUTE .COMPLEX Qty: 90 1RF Dose Instruction: TAKE 1 TABLET BY MOUTH ONCE DAILY FOR HIGH BLOOD PRESSURE Rx Instructions: TAKE 1 TABLET BY MOUTH ONCE DAILY FOR HIGH BLOOD PRESSURE spironolactone 25 mg tablet 25 mg PO DAILY Qty: 90 1RF Patient Comments: TAKE 1 TABLET BY MOUTH ONCE DAILY FOR HIGH BLOOD PRESSURE clopidogrel 75 mg tablet See Rx Instructions .ROUTE .COMPLEX Qty: 90 3RF Dose Instruction: TAKE 1 TABLET BY MOUTH ONCE DAILY FOR ANTIPLATELET Rx Instructions: TAKE 1 TABLET BY MOUTH ONCE DAILY FOR ANTIPLATELET aspirin 81 mg tablet,delayed release (DR/EC) 81 mg PO DAILY Qty: 90 1RF Patient Comments: TAKE 1 TABLET BY MOUTH ONCE DAILY metoprolol succinate 200 mg tablet extended release 24 hr 200 mg PO DAILY Patient Comments: TAKE 1 TABLET BY MOUTH ONCE DAILY Referrals Follow up/Referrals: Anjana Ybarra MD [Primary Care Provider] - See instructions Activity Restrictions/Add. Instructions Additional Instructions/Restrictions: Go home and rest. It would be best if you rested tomorrow too. No heavy lifting. Don't start the oral steroids (medrol dose pack) until tomorrow, since you had the shots in here today. Follow up with your regular doctor. GO TO THE ER FOR ANY WORSENING SYMPTOMS OR CONCERN, ESPECIALLY BOWEL OR BLADDER ISSUES, SADDLE AREA NUMBNESS, FEVER, ETC Clinical Impressions Clinical Impression: Arthralgia Instructions Patient Instructions: DI for Arthralgia, Ketorolac Injection, Dexamethasone Injection Discharge ED Provider: Ryan Del Cid [facility] General Stated complaint: joint pain from arthritus Time Seen by Provider: 03/30/23 13:26 History of Present Illness Provider Complaint: She states that for the past 1 week she has had worsening multiple joint pain. Her pain is worse in her bilateral hand, wrist, and left knee. She has been diagnosed with gout and she states that is what this feels like. Related Data Home Medications Medication Instructions Recorded Confirmed metoprolol succinate 200 mg 200 mg PO DAILY Hypertension 10/05/22 03/30/23 tablet,extended release 24 hr albuterol sulfate 90 mcg/actuation inhalation 02/12/23 02/12/23 aerosol inhaler indomethacin 25 mg capsule 25 mg PO BID 02/12/23 03/30/23 Previous Rx's Medication Instructions Recorded furosemide 40 mg tablet See Rx Instructions .Route 10/22/22 .COMPLEX #90 tabs spironolactone 25 mg tablet 25 mg PO DAILY . #90 tabs 01/06/23 clopidogrel 75 mg tablet See Rx Instructions .Route 01/30/23 .COMPLEX #90 tabs aspirin 81 mg tablet,delayed 81 mg PO DAILY Blood Thinner #90 03/04/23 release tabs methylprednisolone 4 mg tablets in 4 mg PO DIRECTED 6 days #21 tabs 03/30/23 a dose pack Allergies Allergy/AdvReac Type Severity Reaction Status Date / Time atorvastatin [From Lipitor] Allergy Mild Verified 03/30/23 13:35 ezetimibe [From Zetia] AdvReac cramps Verified 03/30/23 13:35 rosuvastatin [From Crestor] AdvReac leg cramps Verified 03/30/23 13:35 PFSH PFS Disclaimer: The information contained in this section may have been updated after the patient was seen, as this information can be updated by other users. Medical History , CAMP HEAD COUNSELOR) Abnormal cardiovascular stress test Abnormal echocardiogram Abnormal stress test Atypical angina Cardiomyopathy COPD (chronic obstructive pulmonary disease) Daytime somnolence Dyspnea Edema Fatigue Sinus tachycardia Snoring Statin intolerance Tobacco dependence syndrome Social History Smoking Status: Current every day smoker tobacco type: cigarettes packs per day: 1 second hand exposure: Yes alcohol intake: never substance use type: denies use current occupational status: retired Travel in the last 8 weeks: Inside the [place] household members: spouse housing: house current occupational exposures/hazards: No caffeine: Yes ROS Obtained: Yes All systems reviewed & no additional complaints except as documented Constitutional Constitutional: Denies chills and Denies fever(s) Eyes Eyes: Denies eye discharge ENT Ears, Nose, Mouth, and Throat: Denies dizziness, Denies otalgia and Denies sore throat Cardiovascular Cardiovascular: Denies chest pain Respiratory Respiratory: Denies shortness of breath, Denies chest congestion, Denies cough, Denies stridor and Denies wheezing Gastrointestinal Gastrointestingal: Denies nausea or vomiting Musculoskeletal Musculoskeletal: Reports as per HPI and Reports arthralgias Integumentary/Breasts Skin/Breast: Denies rash Neurologic Neurologic: Denies dizziness and Denies paresthesias Allergic/Immunologic Allergic/Immunologic: Denies wheezing Physical Exam General General appearance: alert and in no apparent distress Head Head exam: atraumatic, normocephalic and normal inspection Eye Eye exam: Present normal appearance, PERRL and EOMI ENT ENT exam: Present normal exam, normal oropharynx, mucous membranes moist, TM's normal bilaterally and normal external ear exam Neck Neck exam: Present normal inspection, full ROM and trachea midline; Absent meningismus or lymphadenopathy Chest Chest inspection: Present normal inspection and symmetric chest wall rise; Absent tenderness Respiratory Respiratory exam: Present normal lung sounds bilaterally; Absent respiratory distress Cardiovascular Cardiovascular exam: Present regular rate and normal rhythm; Absent JVD Abdominal Exam Abdominal exam: Present soft and normal bowel sounds; Absent distention, tenderness or guarding Extremities Exam Extremities exam: Present normal inspection, full ROM and normal capillary refill; Absent calf tenderness Back Exam Back exam: Present normal inspection; Absent tenderness Neurological Exam Neurological exam: Present alert and oriented X3 Psychiatric Psychiatric exam: Present normal affect and normal mood Skin Skin exam: Present warm, dry, intact and normal color Lymphatic Lymphatic Findings: no adenopathy Medical Decision Making Medical Records Medical records reviewed: No I reviewed the patient's medical records. Elio Inquiry Pt receiving controlled substance: No
[2023-03-30] MEDS: KETOROLAC 60MG/2ML VIAL 30 MG IM (13:41)
[2023-03-30] MEDS: DEXAMETHASONE 4MG/ML 1ML VIAL 8 MG IM (13:41)
[2023-03-30 14:04] VITALS: BP 125/68; PULSE 76; RESP 18; TEMP 36.6; O2SAT 95
== END 2023-03-30 14:04 | disposition home or self-care (01) ==
PROVIDERS: Emergency Provider Nurse Practitioner Family; PCP Family Medicine
DX: M25.541 Pain in joints of right hand (principal); M25.542 Pain in joints of left hand; M25.531 Pain in right wrist; M25.532 Pain in left wrist; M25.562 Pain in left knee; F17.210 Nicotine dependence, cigarettes, uncomplicated; J44.9 Chronic obstructive pulmonary disease, unspecified; I42.9 Cardiomyopathy, unspecified; I10 Essential (primary) hypertension; Z87.39 Personal history of other diseases of the musculoskeletal system and connective tissue
CPT/HCPCS: 96372; 99212; 99214; G0463

== ENCOUNTER 2023-05-14 08:46 | Outpatient (CLI) | payer MEDICARE, OTHER, SELFPAY ==
--- NOTE | 2023-05-14 08:51 | CA_ITS ---
APPROVED REPORT EXAM: Comprehensive 2D, Doppler, and color-flow Echocardiogram [employer]: Sima Joshi RT(R) Ht: 5 ft 1 in Wt: 145lbs BSA: 1.65 BP: 167/141 mmHg Indications: SOB, COPD, smoker, HTN, hyperlipidemia, CAD, CM 2D Dimensions LVEF (Rey's) 48.10 % F: 54 - 74 LV Volume 71.50 mL F: 46 - 106 LV Volume Index 43.3 mL/m2 F: 29 - 61 EF AP4 48.50 % EF AP2 48.2 % EF BP 48.1 % GL Strain -13.6 % M-Mode Dimensions RVDd 2.61 cm (0.9-2.6) LA Diam 2.69 cm (1.9-4.0) LVDd 4.72 cm (3.5-5.7) LVDs 3.47 cm (3.5-5.7) IVSd 0.79 cm (0.6-1.1) PWd 0.79 cm (0.6-1.1) EF (Teich) 51.80% FS 26.50% EDV (Teich) 103.40 mL ESV (Teich) 49.80 mL LV Diastology E Decel Time 153 (160-240 msec) E/A Ratio 0.7 Mitral Valve MV E Max Isauro. 56.0 (40-130 cm/s) MV A Velocity 75.0 (40-130 cm/s) E/A Ratio 0.75 MV PHT 45.0 ms Left Ventricle The left ventricle is normal size. The left ventricular systolic function is low-normal. There is normal left ventricular wall thickness. There is borderline global hypokinesis present. The left ventricular diastolic function is normal. LVEF 50%. Right Ventricle The right ventricle is normal size. The right ventricular systolic function is normal. Atria The left atrium size is normal. The right atrium size is normal. There is no Doppler evidence of interatrial shunt. Aortic Valve The aortic valve is mildly thickened. There is no aortic valvular stenosis. Mild aortic regurgitation. Mitral Valve The mitral valve is normal in structure. No evidence of mitral valve stenosis. Trace mitral regurgitation. Tricuspid Valve The tricuspid valve leaflets are thin and pliable. Trace tricuspid regurgitation. There is insufficient TR jet to estimate RVSP. Pulmonic Valve The pulmonary valve is normal in structure. Trace pulmonic regurgitation. Great Vessels The aortic root is normal in size. The ascending aorta is normal in size. IVC is normal in size and collapses >50% with inspiration. Pericardium There is no pericardial effusion. Other Information Study Quality: Fair Conclusion Low-normal LV systolic function (LVEF 50%). Mild AI. Electronically signed by : Lala Beavers MD 05/17/2023 16:44:48
== END 2023-05-14 23:59 ==
LOC: RT 08:47
PROVIDERS: PCP Family Medicine; Visit Provider Nurse Practitioner
DX: E78.5 Hyperlipidemia, unspecified (principal); F17.200 Nicotine dependence, unspecified, uncomplicated; I11.9 Hypertensive heart disease without heart failure; I25.10 Atherosclerotic heart disease of native coronary artery without angina pectoris; J44.9 Chronic obstructive pulmonary disease, unspecified; R06.00 Dyspnea, unspecified; Z78.9 Other specified health status; I42.8 Other cardiomyopathies
CPT/HCPCS: 93306

== ENCOUNTER 2023-08-04 07:58 | Outpatient (CLI) | payer MEDICARE, OTHER, SELFPAY ==
--- NOTE | 2023-08-04 08:03 | MM_ITS ---
PROCEDURE INFORMATION: Exam: MG Left Screening 3D Mammography Exam date and time: 08/04/2023 7:56 AM Age: 68 years old Clinical indication: Screening examination; Personal history of bilateral breast cancer; treated with right mastectomy and left lumpectomy and radiation therapy; Additional info: Mamm screening TECHNIQUE: Imaging protocol: Left Screening tomosynthesis and 2D mammography including computer-aided detection (CAD) when performed. COMPARISON: 1. MG MM DIG SC MAMM UNILAT LT CAD 05/21/2022 9:58 AM 2. MG MM DIG SC MAMM UNILAT LT CAD 05/10/2021 10:18 AM 3. MG MM DIG SCREENING MAMM BI W/CAD 04/20/2020 9:17 AM FINDINGS: MAMMOGRAPHY: Breast composition: There are scattered areas of fibroglandular density. Mass: No suspicious masses. Architectural distortion: No suspicious distortion. Stable post lumpectomy changes in the upper left breast. Calcifications: No suspicious calcifications. Stable coarse scattered calcifications bilaterally. Asymmetric density: None. Skin thickening: None. Axillary adenopathy: None. IMPRESSION: No mammographic evidence of malignancy. Annual screening is recommended unless otherwise clinically indicated. ASSESSMENT: BI-RADS Category 2: Benign.
== END 2023-08-04 23:59 | disposition home or self-care (01) ==
LOC: RAD 07:59
PROVIDERS: PCP Family Medicine; Visit Provider Family Medicine
DX: Z12.31 Encounter for screening mammogram for malignant neoplasm of breast (principal)
CPT/HCPCS: 77063; 77067

== ENCOUNTER 2023-12-08 08:49 | Outpatient (CLI) | payer MEDICARE, OTHER, SELFPAY ==
[2023-12-10 21:08] LABS: QuantiFERON-TB Gold Plus Negative (Negative)
== END 2023-12-08 23:59 | disposition home or self-care (01) ==
LOC: LAB 08:51
PROVIDERS: PCP Family Medicine; Visit Provider Dermatology Dermatopathology
DX: L40.0 Psoriasis vulgaris (principal); Z79.899 Other long term (current) drug therapy
CPT/HCPCS: 36415; 86480

== ENCOUNTER 2024-04-21 07:50 | Outpatient (CLI) | payer MEDICARE, OTHER, SELFPAY ==
[2024-04-21 08:25] LABS: Basophils # 0.1 K/mm3 (0-0.2); Basophils % 0.4 % (0.1-2.0); Eosinophils # 0.2 K/mm3 (0.0-0.4); Eosinophils % 1.9 % (0.1-12.0); Hematocrit 38.4 % (37.0-47.0); Hemoglobin 12.2 g/dL (12.2-16.2); Lymphocytes % 27.2 % (10-50); Mean Corpuscular HGB Conc 31.8 g/dL (31.8-35.4); Mean Corpuscular Volume 94.3 fl (81-99); Mean Platelet Volume 9.1 fl (7.4-10.4); Monocytes # 0.9 K/mm3 (0.1-1.0); Neutrophils # 6.9 K/mm3 (1.8-7.8); Neutrophils % 62.2 % (37.0-80.0); Platelet Count 486 K/mm3 (142-424); Red Blood Count 4.07 M/mm3 (4.20-5.40); Red Cell Distribution Width 15.4 % (11.5-17.5); White Blood Count 11.2 K/mm3 (4.8-10.8)
[2024-04-21 08:46] LABS: Alanine Aminotransferase 15 U/L (12-78); Albumin Level 3.9 g/dl (3.5-5.0); Alkaline Phosphatase 98 U/L (38-126); Aspartate Amino Transferase 19 U/L (14-36); Bilirubin,Direct 0.1 mg/dl (0.0-0.4); Bilirubin,Indirect 0.1 mg/dL (0.0-0.9); Bilirubin,Total 0.2 mg/dl (0.2-1.3); Bilirubin,Unconjugated 0.1 mg/dL (0.0-1.1); Blood Urea Nitrogen 27 mg/dl (7-17); Calcium 9.3 mg/dl (8.4-10.2); Carbon Dioxide 25 mmol/L (22.0-30.0); Chloride 107 mmol/L (98-107); Chol/HDL Ratio 8.3 (1-3.5); Cholesterol 275 mg/dl (140-200); Estimated Glomerular Filt Rate 26 ml/min (>60); GFR (African American) 32 ML/MIN (>60); Glucose 115 mg/dl (74-100); HDL Cholesterol 33 mg/dl (40-60); Magnesium 2.2 mg/dl (1.6-2.3); Sodium 139 mmol/L (136-145); Total Protein,Serum 6.3 g/dl (6.3-8.2); Triglycerides 394 mg/dl (30-150); VLDL Cholesterol 79 mg/dL (0-40)
[2024-04-21 08:57] LABS: Direct LDL Cholesterol 141.62 mg/dL (100-129)
[2024-04-21 09:04] LABS: Free T4 (Free Thyroxine) 1.07 ng/dl (0.78-2.19)
[2024-04-21 09:17] LABS: Thyroid Stimulating Hormone 3.53 uIU/mL (0.465-4.68)
== END 2024-04-21 23:59 | disposition home or self-care (01) ==
LOC: LAB 07:52
PROVIDERS: PCP Family Medicine; Visit Provider Physician Assistant
DX: I25.10 Atherosclerotic heart disease of native coronary artery without angina pectoris (principal); R06.02 Shortness of breath; Z78.9 Other specified health status; E78.2 Mixed hyperlipidemia; I11.9 Hypertensive heart disease without heart failure; J44.9 Chronic obstructive pulmonary disease, unspecified; F17.200 Nicotine dependence, unspecified, uncomplicated; I25.5 Ischemic cardiomyopathy
CPT/HCPCS: 36415; 80048; 80061; 80076; 83735; 84439; 84443; 85025

== ENCOUNTER 2024-04-30 08:49 | Outpatient (CLI) | payer MEDICARE, OTHER, SELFPAY ==
[2024-04-30 10:21] LABS: Chloride 110 mmol/L (98-107); Potassium 5.3 mmoL/L (3.5-5.1); Sodium 140 mmol/L (136-145)
[2024-04-30 10:24] LABS: Anion Gap 12.3 mEq/L (5-15); Blood Urea Nitrogen 22 mg/dl (7-17); Calcium 9.7 mg/dl (8.4-10.2); Carbon Dioxide 23 mmol/L (22.0-30.0); Estimated Glomerular Filt Rate 37 ml/min (>60); GFR (African American) 45 ML/MIN (>60); Glucose 101 mg/dl (74-100)
== END 2024-04-30 23:59 | disposition home or self-care (01) ==
LOC: LAB 08:51
PROVIDERS: PCP Family Medicine; Visit Provider Physician Assistant
DX: I25.5 Ischemic cardiomyopathy (principal); I25.10 Atherosclerotic heart disease of native coronary artery without angina pectoris; I11.9 Hypertensive heart disease without heart failure; J44.9 Chronic obstructive pulmonary disease, unspecified; E78.2 Mixed hyperlipidemia; F17.200 Nicotine dependence, unspecified, uncomplicated
CPT/HCPCS: 36415; 80048

== ENCOUNTER 2024-05-10 08:48 | Outpatient (CLI) | payer MEDICARE, OTHER, SELFPAY ==
[2024-05-10 09:15] LABS: Basophils % 0.3 % (0.1-2.0); Eosinophils % 0.2 % (0.1-12.0); Hematocrit 39.2 % (37.0-47.0); Hemoglobin 12.4 g/dL (12.2-16.2); Lymphocytes # 2.7 K/mm3 (0.7-4.5); Lymphocytes % 21.6 % (10-50); Mean Corpuscular HGB Conc 31.6 g/dL (31.8-35.4); Mean Corpuscular Hemoglobin 29.1 pg (27.0-31.2); Mean Platelet Volume 9.1 fl (7.4-10.4); Monocytes # 1.1 K/mm3 (0.1-1.0); Monocytes % 8.5 % (1.7-9.3); Neutrophils # 8.6 K/mm3 (1.8-7.8); Platelet Count 517 K/mm3 (142-424); Red Blood Count 4.26 M/mm3 (4.20-5.40); Red Cell Distribution Width 15.2 % (11.5-17.5); White Blood Count 12.4 K/mm3 (4.8-10.8)
[2024-05-10 10:05] LABS: Free Thyroxine Index 3.7 ug/dL (5.93-13.13); T4 (Thyroxine) 11.5 ug/dl (5.53-11.0); Triiodothryronine (T3) Uptake 32 % (23.5-40.5)
[2024-05-10 10:09] LABS: Albumin Level 4.3 g/dl (3.5-5.0); Chloride 105 mmol/L (98-107); Potassium 4.5 mmoL/L (3.5-5.1); Sodium 139 mmol/L (136-145)
[2024-05-10 10:11] LABS: Bilirubin,Unconjugated 0.3 mg/dL (0.0-1.1); Blood Urea Nitrogen 20 mg/dl (7-17); Estimated Glomerular Filt Rate 40 ml/min (>60); GFR (African American) 49 ML/MIN (>60)
[2024-05-10 10:12] LABS: Alanine Aminotransferase 14 U/L (12-78); Alkaline Phosphatase 109 U/L (38-126); Anion Gap 13.5 mEq/L (5-15); Aspartate Amino Transferase 17 U/L (14-36); Bilirubin,Direct 0.2 mg/dl (0.0-0.4); Bilirubin,Indirect 0.3 mg/dL (0.0-0.9); Bilirubin,Total 0.5 mg/dl (0.2-1.3); Calcium 10.2 mg/dl (8.4-10.2); Carbon Dioxide 25 mmol/L (22.0-30.0); Cholesterol 277 mg/dl (140-200); Glucose 111 mg/dl (74-100); HDL Cholesterol 32 mg/dl (40-60); Magnesium 1.8 mg/dl (1.6-2.3); Total Protein,Serum 7.1 g/dl (6.3-8.2); Triglycerides 324 mg/dl (30-150); VLDL Cholesterol 65 mg/dL (0-40)
[2024-05-10 10:13] LABS: Chol/HDL Ratio 8.7 (1-3.5)
[2024-05-10 10:19] LABS: Thyroid Stimulating Hormone 2.54 uIU/mL (0.465-4.68)
[2024-05-10 10:25] LABS: Direct LDL Cholesterol 179.86 mg/dL (100-129)
== END 2024-05-10 23:59 | disposition home or self-care (01) ==
LOC: LAB 08:52
PROVIDERS: PCP Family Medicine; Visit Provider Physician Assistant
DX: I25.10 Atherosclerotic heart disease of native coronary artery without angina pectoris (principal); R53.1 Weakness; R53.83 Other fatigue; R60.0 Localized edema; R06.02 Shortness of breath; I11.9 Hypertensive heart disease without heart failure; E78.5 Hyperlipidemia, unspecified; F17.210 Nicotine dependence, cigarettes, uncomplicated
CPT/HCPCS: 36415; 80048; 80061; 80076; 83735; 84436; 84443; 84479; 85025

== ENCOUNTER 2024-06-04 10:07 | Outpatient (CLI) | payer MEDICARE, OTHER, SELFPAY ==
--- NOTE | 2024-06-04 | MM_ITS ---
PROCEDURE INFORMATION: Exam: MG Left Diagnostic Breast Tomosynthesis Exam date and time: 06/04/2024 10:19 AM Age: 69 years old Clinical indication: Left breast palpable lump; Personal history of bilateral breast cancer; Mastectomy and lumpectomy TECHNIQUE: Imaging protocol: Left Diagnostic tomosynthesis and 2D mammography including computer-aided detection (CAD) when performed. Unilateral or bilateral exam. COMPARISON: 1. MG MM DIG SC MAMM UNILAT LT CAD 08/04/2023 7:56 AM 2. MG MM DIG SC MAMM UNILAT LT CAD 05/21/2022 9:58 AM FINDINGS: MAMMOGRAPHY: Breast composition: There are scattered areas of fibroglandular density. Breast mammogram findings: There is no stellate mass, architectural distortion or suspicious microcalcifications to suggest malignancy. Coarse dystrophic calcifications are noted predominantly in the left lateral breast. Two skin markers were placed over 2 areas of palpable concern in the left medial breast. No suspicious findings were seen on spot compression views. Architectural distortion in the left upper outer quadrant is due to prior lumpectomy. No suspicious skin thickening or axillary adenopathy. Patient is status post right mastectomy IMPRESSION: Patient to return for left breast ultrasound for full evaluation of the patient's complaint of 2 left palpable abnormalities. ASSESSMENT: BI-RADS Category 1: Negative.
== END 2024-06-04 23:59 | disposition home or self-care (01) ==
LOC: RAD 10:09
PROVIDERS: PCP Family Medicine; Visit Provider Nurse Practitioner
DX: N63.11 Unspecified lump in the right breast, upper outer quadrant (principal)
CPT/HCPCS: 77061; 77065; G0279

== ENCOUNTER 2024-06-15 10:09 | Outpatient (CLI) | payer MEDICARE, OTHER, SELFPAY ==
--- NOTE | 2024-06-15 10:12 | US_ITS ---
PROCEDURE INFORMATION: Exam: US Left Breast, Complete Exam date and time: 06/15/2024 10:19 AM Age: 69 years old Clinical indication: Personal history of bilateral breast cancer, treated with right mastectomy and left lumpectomy. The patient complains of to left breast palpable abnormalities. Mammogram was performed on 06/04/2024. This is the recommended follow-up ultrasound. TECHNIQUE: Imaging protocol: Complete ultrasound of all four quadrants of the left breast and the retroareolar regions, including ultrasound of the axilla when performed. COMPARISON: MG MM DIG MAMM DX UNILAT LT CAD 06/04/2024 10:19 AM FINDINGS: ULTRASOUND: Breast ultrasound findings: In the area of scar tissue, there is shadowing from the coarse calcifications that correlate to the mammogram findings. The presence of scar tissue and shadowing from fat necrosis limits evaluation on ultrasound. In the 4 o'clock axis, 4 cm from the nipple, there is a hypoechoic slightly indistinct mass measuring 0.7 x 0 4 x 0 5 cm. There is a smaller adjacent similar mass with peripheral blood flow measuring 0.5 x 0 5 x 0 2 cm. This is located at 5 cm from the nipple. Mildly do not correlate to the palpable site of concern, they are considered indeterminate. IMPRESSION: In the palpable area of concern, left breast upper inner quadrant, no definite sonographic abnormality is noted. However at 4 o'clock, 4 and 5 cm from the nipple, there are adjacent subcentimeter hypoechoic masses that are considered indeterminate. Ultrasound-guided needle biopsy of both these masses is recommended for tissue diagnosis. ASSESSMENT: BI-RADS Category 4: Suspicious.
== END 2024-06-15 23:59 | disposition home or self-care (01) ==
LOC: RAD 10:10
PROVIDERS: PCP Family Medicine; Visit Provider Nurse Practitioner
DX: N63.22 Unspecified lump in the left breast, upper inner quadrant (principal); Z85.3 Personal history of malignant neoplasm of breast; Z90.11 Acquired absence of right breast and nipple; Z98.890 Other specified postprocedural states
CPT/HCPCS: 76641

== ENCOUNTER 2024-07-02 08:48 | Outpatient (CLI) | payer MEDICARE, OTHER, SELFPAY ==
--- NOTE | 2024-07-02 08:52 | MM_ITS ---
FINAL REPORT CLINICAL HISTORY: clip placement FINDINGS: MAMMOGRAM LEFT TECHNIQUE: Standard digital 2-D views COMPARISON: 06/14/2024 DENSITY: There are scattered areas of fibroglandular density FINDINGS: Post biopsy marker clip is noted to be in satisfactory position. Postbiopsy changes are noted. IMPRESSION: Biopsy marker clip in good position ASSESSMENT: A post-procedure mammogram is used to confirm the position and deployment of a breast tissue marker after a biopsy RECOMMENDATION: Histopathology reveals findings of invasive ductal carcinoma. This is concordant with imaging findings. Surgical and medical oncologic follow-up recommended. Authenticated and [facility]
--- NOTE | 2024-07-02 09:06 | US_ITS ---
FINAL REPORT CLINICAL HISTORY: ABNORMAL MAMM -- US GUIDED LT BREAST BX -- DR BUBBA SERNA -- 4:00 -- DUAL CORE FINDINGS: ULTRASOUND-GUIDED LEFT BREAST CORE BIOPSY TECHNIQUE: Limited images were obtained to localize region of interest. The lesion was located at approximately 4:00. On original ultrasound report 2 separate lesions were described. However on further assessment this corresponded to one elongated lesion. The left breast was prepped in a routine sterile fashion and locally anesthetized with 1% lidocaine. Standard written informed consent was obtained. The biopsy needle was positioned within the outer periphery of the lesion. A total of 4 passes were made with a 16 gauge core biopsy needle. A biopsy marker clip was deployed in satisfactory position. Postbiopsy mammogram showed postbiopsy changes with clip in satisfactory position. Procedure was well tolerated . CONCLUSION: 1. Technically successful ultrasound guided core biopsy of left breast lesion as above. 2. Biopsy marker clip deployed Histopathology reveals findings of invasive ductal carcinoma. This is concordant with imaging findings. Surgical and medical oncologic follow-up recommended. Authenticated and [facility]
== END 2024-07-02 23:59 | disposition home or self-care (01) ==
LOC: RAD 08:50
PROVIDERS: PCP Nurse Practitioner; Visit Provider Nurse Practitioner
DX: C50.512 Malignant neoplasm of lower-outer quadrant of left female breast (principal)
CPT/HCPCS: 19083; 77065; 88305; 88341; 88342; 88360

== ENCOUNTER 2025-02-02 09:14 | Outpatient (CLI) | payer MEDICARE, OTHER, SELFPAY ==
--- NOTE | 2025-02-02 09:17 | CT_ITS ---
FINAL REPORT TECHNIQUE: Thin section axial images were obtained through the right wrist without contrast. Reconstruction images were obtained from the axial data. Exam was performed using dose reduction technique. CLINICAL HISTORY: PAIN FINDINGS: There is a comminuted, intra-articular fracture of the distal radius. There is no significant displacement. There is also age-indeterminate irregularity of the ulnar side of the triquetrum which may be chronic. No other acute fracture is identified. There is mild degenerative joint disease. There is no widening of the scapholunate distance. There is likely a small joint effusion. Evaluation of the soft tissues is limited. IMPRESSION: Comminuted, intra-articular distal radial fracture. Age-indeterminate, possibly chronic irregularity at the ulnar side of the triquetrum. Reviewed, Interpreted and Dictated by Yanet Whitaker MD Transcribed by Ashli Bowling Authenticated and [facility]
--- NOTE | 2025-02-02 09:17 | CT_ITS ---
FINAL REPORT TECHNIQUE: Thin section axial images were obtained through the right shoulder without contrast. Reconstruction images were obtained from the axial data. Exam was performed using dose reduction technique. CLINICAL HISTORY: PAIN FINDINGS: There is a comminuted fracture of the right humeral head and neck involving the greater tuberosity. There is no significant displacement. There is no dislocation. There is degenerative joint disease of the glenohumeral and acromioclavicular joints. No other acute bony abnormality is identified. There is a joint effusion. Surgical clips are noted at the right axilla. Imaging of the lung demonstrates reticulonodular opacities in the right upper lobe, favor infectious or inflammatory. IMPRESSION: Comminuted humeral head and neck fracture. Degenerative joint disease. Reticulonodular opacities, favor infectious/inflammatory. Reviewed, Interpreted and Dictated by Yanet Whitaker MD Transcribed by Ashli Bowling Authenticated and [facility]
== END 2025-02-02 23:59 | disposition home or self-care (01) ==
LOC: RAD 09:15
PROVIDERS: PCP Family Medicine; Visit Provider Physician Assistant
DX: S52.571A Other intraarticular fracture of lower end of right radius, initial encounter for closed fracture (principal); S42.291A Other displaced fracture of upper end of right humerus, initial encounter for closed fracture; S42.211A Unspecified displaced fracture of surgical neck of right humerus, initial encounter for closed fracture; M19.011 Primary osteoarthritis, right shoulder; R93.6 Abnormal findings on diagnostic imaging of limbs
CPT/HCPCS: 73200